=== PATIENT | female | born 1930 | race Caucasian/White ===

== ENCOUNTER 2016-05-01 09:22 | Observation (INO) | payer MEDICARE ==
[2016-05-01] MEDS ORDERED: LORazepam 2 MG/ML SYRINGE IV STA (09:37)
[2016-05-01] MEDS ORDERED: NITROGLYCERIN OINT 1 INCH/GM PACKET TOPICAL STA (09:37)
[2016-05-01] MEDS ORDERED: ASPIRIN 81 MG CHEW PO STA (09:37)
--- NOTE | 2016-05-01 09:39 | ED ---
General Adult HPI - General Chief complaint: Chest Pain Stated complaint: Chest Pain (Heart hx) Time Seen by Provider: 05/01/16 09:30 Source: patient, RN notes reviewed Mode of arrival: ambulatory Limitations: no limitations - History of Present Illness Initial comments: This is a 86-year-old female who presents emergency department with past medical history significant for hypertension and heart attack with a stent placement approximately 3 years ago. Patient states this morning she woke up at 6:30 she had left-sided chest pressure with a little burning sensation. Patient states she also had pain in her arm and a sensation of fullness in her throat. Patient states she wasn't nauseated did not vomit. Patient denies any episodes of diaphoresis. Patient stated that she had no difficulty breathing or shortness of breath. Patient denies any recent fever chills or cough. Patient states after a while she took a nitro and eventually the pain subsided. Patient states her nitro were up-to-date. Patient denies any abdominal pain. Patient denies any recent diarrhea. Patient denies headache patient denies any numbness or focal weakness. Patient denies any lightheadedness dizziness or near syncopal episode. - Related Data Home Medications Medication Instructions Recorded Confirmed Magnesium Oxide [Mag-Ox] 500 mg PO DAILY 05/14/14 05/01/16 Multivitamins, Thera [Multivitamin] 1 tab PO DAILY 05/14/14 05/01/16 Aspirin 81 mg PO HS 11/08/14 05/01/16 Calcium Carbonate [Calcium] 600 mg PO DAILY 11/08/14 05/01/16 Lisinopril [Zestril] 5 mg PO DAILY 11/08/14 05/01/16 Aspirin 325 mg PO ONCE 05/01/16 05/01/16 Atorvastatin [Lipitor] 20 mg PO HS 05/01/16 05/01/16 Cholecalciferol [Vitamin D3] 1,000 unit PO DAILY 05/01/16 05/01/16 Previous Rx's Medication Instructions Recorded Nitroglycerin Sl Tabs [Nitrostat] 0.4 mg SUBLINGUAL Q5M PRN #25 tab 05/16/14 Allergies Allergy/AdvReac Type Severity Reaction Status Date / Time nickel Allergy Rash/Hives Verified 05/01/16 09:52 Review of Systems ROS Statement: Those systems with pertinent positive or pertinent negative responses have been documented in the HPI. ROS Other: All systems not noted in ROS Statement are negative. Past Medical History Past Medical History: Chest Pain / Angina, Hyperlipidemia, Hypertension, Syncope Additional Past Medical History / Comment(s): 12/31/14 Pt presented to [facility] ER with chest discomfort-onset yesterday and worse today. It is a burning across chest. Pt had mild associated nausea and dyspnea. 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 History of Any Multi-Drug Resistant Organisms: None Reported Past Surgical History: Appendectomy, Heart Catheterization With Stent, Hysterectomy, Joint Replacement, Tonsillectomy Additional Past Surgical History / Comment(s): L total knee, bilateral cataract removal with lens implants, colonoscopy with polypectomies which were benign. 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 Her June 2013. Pt is independent. She drives a car. Pt does not use any assisstive devices. She usually walks 2 miles frequently for exercise. Date of Last Stent Placement:: Past Psychological History: No Psychological Hx Reported Smoking Status: Never smoker Past Alcohol Use History: None Reported Past Drug Use History: None Reported - Past Family History Father Family Medical History: No Reported History Additional Family Medical History / Comment(s): Father of complications from a MVA Mother Family Medical History: Congestive Heart Failure (CHF), Coronary Artery Disease (CAD) Additional Family Medical History / Comment(s): Mother had rheumaic fever. General Exam - General Exam Comments Initial Comments: GENERAL: Patient is well-developed and well-nourished. Patient is nontoxic and well- hydrated and is in mild distress. ENT: Neck is soft and supple. No significant lymphadenopathy is noted. Oropharynx is clear. Moist mucous membranes. Neck has full range of motion without eliciting any pain. EYES: The sclera were anicteric and conjunctiva were pink and moist. Extraocular movements were intact and pupils were equal round and reactive to light. Eyelids were unremarkable. PULMONARY: Unlabored respirations. Good breath sounds bilaterally. No audible rales rhonchi or wheezing was noted. CARDIOVASCULAR: There is a regular rate and rhythm without any murmurs gallops or rubs. ABDOMEN: Soft and nontender with normal bowel sounds. No palpable organomegaly was noted. There is no palpable pulsatile mass. SKIN: Skin is clear with no lesions or rashes and otherwise unremarkable. NEUROLOGIC: Patient is alert and oriented x3. Cranial nerves II through XII are grossly intact. Motor and sensory are also intact. Normal speech, volume and content. Symmetrical smile. MUSCULOSKELETAL: Normal extremities with adequate strength and full range of motion. No lower extremity swelling or edema. No calf tenderness. LYMPHATICS: No significant lymphadenopathy is noted PSYCHIATRIC: Normal psychiatric evaluation. Normal interpersonal interactions appears functionally intact in deals appropriately with others. No signs of depression. No signs of anxiety. Limitations: no limitations Course Vital Signs 05/01/16 05/01/16 05/01/16 09:33 09:34 09:37 Temperature 97.9 F 97.8 F Pulse Rate 85 94 Pulse Rate [ 92 Bilateral Radial] Respiratory 18 14 Rate Blood Pressure 171/79 158/91 O2 Sat by Pulse 97 99 Oximetry 05/01/16 10:36 Temperature Pulse Rate 76 Pulse Rate [ Bilateral Radial] Respiratory 14 Rate Blood Pressure 111/73 O2 Sat by Pulse 95 Oximetry Medical Decision Making - Medical Decision Making EKG shows sinus rhythm with frequent PVCs at 89 bpm WI interval is on a 54 QRS is 84 QT interval 362 QTC is 440. Patient's EKG shows no ST segment elevation or depression or T wave abnormalities are noted. Chest x-ray shows no acute abnormality. I went back into the room to reevaluate the patient she remained pain-free at this time. After all labs were back I went back into the room to reevaluate the patient she again remained pain-free. But because of her history her clinical picture today I was concerned about her having had unstable angina so I started heparin. [facility] I wrote admitting orders and consult cardiology continued heparin nitroglycerin and aspirin on the floor. - Lab Data Result diagrams: 05/01/16 09:46 05/01/16 09:46 Lab Results 05/01/16 05/01/16 05/01/16 Range/Units 09:46 09:46 09:46 WBC 8.2 (3.8-10.6) k/uL RBC 5.28 (3.80-5.40) m/uL Hgb 15.9 (11.4-16.0) gm/dL Hct 48.0 H (34.0-46.0) % MCV 90.8 (80.0-100.0) fL MCH 30.1 (25.0-35.0) pg MCHC 33.1 (31.0-37.0) g/dL RDW 13.7 (11.5-15.5) % Plt Count 427 (150-450) k/uL Neutrophils % 68 % Lymphocytes % 22 % Monocytes % 5 % Eosinophils % 2 % Basophils % 1 % Neutrophils # 5.5 (1.3-7.7) k/uL Lymphocytes # 1.8 (1.0-4.8) k/uL Monocytes # 0.4 (0-1.0) k/uL Eosinophils # 0.2 (0-0.7) k/uL Basophils # 0.1 (0-0.2) k/uL PT (9.0-12.0) sec INR (<1.1) APTT (22.0-30.0) sec Sodium 144 (137-145) mmol/L Potassium 4.6 (3.5-5.1) mmol/L Chloride 108 H (98-107) mmol/L Carbon Dioxide 26 (22-30) mmol/L Anion Gap 10 mmol/L BUN 12 (7-17) mg/dL Creatinine 0.74 (0.52-1.04) mg/dL Est GFR (MDRD) Af Amer >60 (>60 ml/min/1.73 sqM) Est GFR (MDRD) Non-Af >60 (>60 ml/min/1.73 sqM) Glucose 109 H (74-99) mg/dL Calcium 9.5 (8.4-10.2) mg/dL Magnesium 2.1 (1.6-2.3) mg/dL Total Bilirubin 0.8 (0.2-1.3) mg/dL AST 29 (14-36) U/L ALT 29 (9-52) U/L Alkaline Phosphatase 81 (38-126) U/L Total Creatine Kinase 44 (30-135) U/L CK-MB (CK-2) 0.5 (0.0-2.4) ng/mL CK-MB (CK-2) Rel Index 1.1 Troponin I <0.012 (0.000-0.034) ng/mL Total Protein 7.1 (6.3-8.2) g/dL Albumin 4.1 (3.5-5.0) g/dL 05/01/16 Range/Units 09:46 WBC (3.8-10.6) k/uL RBC (3.80-5.40) m/uL Hgb (11.4-16.0) gm/dL Hct (34.0-46.0) % MCV (80.0-100.0) fL MCH (25.0-35.0) pg MCHC (31.0-37.0) g/dL RDW (11.5-15.5) % Plt Count (150-450) k/uL Neutrophils % % Lymphocytes % % Monocytes % % Eosinophils % % Basophils % % Neutrophils # (1.3-7.7) k/uL Lymphocytes # (1.0-4.8) k/uL Monocytes # (0-1.0) k/uL Eosinophils # (0-0.7) k/uL Basophils # (0-0.2) k/uL PT 11.4 (9.0-12.0) sec INR 1.1 (<1.1) APTT 21.2 L (22.0-30.0) sec Sodium (137-145) mmol/L Potassium (3.5-5.1) mmol/L Chloride (98-107) mmol/L Carbon Dioxide (22-30) mmol/L Anion Gap mmol/L BUN (7-17) mg/dL Creatinine (0.52-1.04) mg/dL Est GFR (MDRD) Af Amer (>60 ml/min/1.73 sqM) Est GFR (MDRD) Non-Af (>60 ml/min/1.73 sqM) Glucose (74-99) mg/dL Calcium (8.4-10.2) mg/dL Magnesium (1.6-2.3) mg/dL Total Bilirubin (0.2-1.3) mg/dL AST (14-36) U/L ALT (9-52) U/L Alkaline Phosphatase (38-126) U/L Total Creatine Kinase (30-135) U/L CK-MB (CK-2) (0.0-2.4) ng/mL CK-MB (CK-2) Rel Index Troponin I (0.000-0.034) ng/mL Total Protein (6.3-8.2) g/dL Albumin (3.5-5.0) g/dL Critical Care Time Critical Care Time: Yes Total Critical Care Time: 35 Disposition Clinical Impression: Unstable angina Disposition: ADMITTED IP TO THIS [facility] Time of Disposition: 10:49
[2016-05-01 09:57] LABS: Basophils # (A) 0.1 k/uL (0-0.2); Basophils % (A) 1 %; CH 29.9; CHCM 33.1; Eosinophils # (A) 0.2 k/uL (0-0.7); Eosinophils % (A) 2 %; HDW 2.31; HGB 15.9 gm/dL (11.4-16.0); Luc # (Auto) 0.18; Luc % (Auto) 2; Lymphocytes # (A) 1.8 k/uL (1.0-4.8); Lymphocytes % (A) 22 %; MCH 30.1 pg (25.0-35.0); MCHC 33.1 g/dL (31.0-37.0); MCV 90.8 fL (80.0-100.0); Mean Platelet Volume 8.4; Monocytes # (A) 0.4 k/uL (0-1.0); Monocytes % (A) 5 %; Neutrophils # (A) 5.5 k/uL (1.3-7.7); Neutrophils % (A) 68 %; RBC 5.28 m/uL (3.80-5.40); RDW 13.7 % (11.5-15.5); WBC 8.2 k/uL (3.8-10.6); WBC (Perox) 8.34
--- NOTE | 2016-05-01 10:09 | XR ---
EXAMINATION TYPE: XR chest 2V DATE OF EXAM: 05/01/2016 10:04 AM COMPARISON: Chest x-ray December 31, 2014. HISTORY: Chest pain today. TECHNIQUE: Frontal and lateral views of the chest are obtained. FINDINGS: There is chronic parenchymal change without suspicious focal air space opacity, pleural ef fusion, or pneumothorax seen. The cardiac silhouette size remains within normal limits with atherosc lerotic thoracic aorta redemonstrated. The osseous structures remain demineralized. IMPRESSION: Chronic changes without acute pulmonary process. No significant change from prior.
[2016-05-01 10:12] LABS: ALT 29 U/L (9-52); AST 29 U/L (14-36); Alkaline Phosphatase 81 U/L (38-126); Anion Gap 10 mmol/L; Blood Urea Nitrogen 12 mg/dL (7-17); Calcium 9.5 mg/dL (8.4-10.2); Carbon Dioxide 26 mmol/L (22-30); Chloride 108 mmol/L (98-107); Glucose 109 mg/dL (74-99); Magnesium 2.1 mg/dL (1.6-2.3); Non-African American GFR(MDRD) >60 (>60 ml/min/1.73 sqM); Potassium 4.6 mmol/L (3.5-5.1); Sodium 144 mmol/L (137-145); Total Bilirubin 0.8 mg/dL (0.2-1.3); Total Protein 7.1 g/dL (6.3-8.2)
[2016-05-01 10:17] LABS: INR 1.1 (<1.1); Prothrombin Time 11.4 sec (9.0-12.0)
[2016-05-01 10:19] LABS: Partial Thromboplastin Time 21.2 sec (22.0-30.0)
[2016-05-01 10:30] LABS: Creatine Kinase 44 U/L (30-135)
[2016-05-01 10:44] LABS: Creatine Kinase MB 0.5 ng/mL (0.0-2.4); Troponin I <0.012 ng/mL (0.000-0.034)
[2016-05-01] MEDS ORDERED: HEPARIN SODIUM,PORCINE 5,000 UNIT/ML 1 ML VIAL IV ONE (10:47)
[2016-05-01] MEDS ORDERED: NITROGLYCERIN SL TABS 0.4 MG TAB SUBLINGUAL PRN ×2 (10:50→15:29)
[2016-05-01] MEDS ORDERED: HEPARIN SODIUM,PORCINE/D5W PMX 25,000 UNIT in DEXTROSE/WATER 1 500ML.BAG IV SCH (11:00)
[2016-05-01 12:33] VITALS: RESP 16
[2016-05-01] MEDS: PANTOPRAZOLE 40 MG/10 ML VIAL IVP SCH (16:24)
[2016-05-01] MEDS: NITROGLYCERIN OINT 1 INCH/GM PACKET TOPICAL SCH ×3 (16:25→22:46)
[2016-05-01 18:06] LABS: Creatine Kinase 36 U/L (30-135)
[2016-05-01 18:16] LABS: Creatine Kinase MB 0.2 ng/mL (0.0-2.4); Troponin I <0.012 ng/mL (0.000-0.034)
[2016-05-01] MEDS ORDERED: ASPIRIN 81 MG CHEW PO SCH (21:00)
[2016-05-01] MEDS ORDERED: ATORVASTATIN 20 MG TAB PO SCH (21:00)
--- NOTE | 2016-05-01 22:07 | HP ---
DATE OF ADMISSION: Patient is an 86-year-old female with known history of coronary artery disease and stents in the past. She came in with complaints of chest pressure-like sensation which started today morning, non-exertional. Patient had a stress test in 2014 which was negative. Patient's chest pain lasted for about 30 minutes. Denied any shortness of breath, lightheadedness or diaphoresis associated with that. Patient's chest pain is non-pleuritic in nature, not associated with food, but it is like a burning sensation. She did complain of radiation to the left arm. Patient's symptoms improved with 2 aspirin and 2 nitroglycerin, she says; about 7/10 in severity on onset; now pretty minimal at this time. Patient denied any fever or chills. Patient denied any cough, runny nose. REVIEW OF SYSTEMS: CONSTITUTIONAL: No fever, no malaise, no fatigue. HEENT: No recent visual problems or hearing problems. Denied any sore throat. CARDIOVASCULAR: As described in HPI. PULMONARY: No shortness of breath, no cough, no hemoptysis. GASTROINTESTINAL: No diarrhea, no nausea, no vomiting, no abdominal pain. Normoactive bowel sounds. NEUROLOGICAL: No headaches, no weakness, no numbness. HEMATOLOGICAL: Denies any bleeding or petechiae. GENITOURINARY: Denies any burning micturition, frequency, or urgency. MUSCULOSKELETAL/RHEUMATOLOGICAL: Denies any joint pain, swelling, or any muscle pain. ENDOCRINE: Denies any polyuria or polydipsia. The rest of the 14 point review of systems is negative. Home medications include: 1. Magnesium. 2. Multivitamin. 3. Aspirin. 4. Calcium carbonate. 5. Lisinopril. 6. Aspirin. 7. Atorvastatin. 8. Cholecalciferol. Past medical history is significant for: 1. Coronary artery disease. 2. Hyperlipidemia. 3. Hypertension. 4. Syncopal episode in the past. 5. Patient had a cardiac catheterization with stent placement in the past. 6. Appendectomy. 7. Hysterectomy. 8. Joint replacement surgery. 9. Tonsillectomy. SOCIAL HISTORY: Patient denied any smoking, alcohol abuse or any drug abuse. FAMILY HISTORY: Father of complications of motor vehicle accident. Mother had congestive heart failure, coronary artery disease. Mother had rheumatic fever as well. PHYSICAL EXAMINATION: VITAL SIGNS: Temperature 98.2, pulse of 92, respiratory rate of 16, blood pressure 113/63. Saturating at 93% on room air. GENERAL: The patient is alert and oriented x3, not in any acute distress. Well developed, well nourished. HEENT: Pupils are round and equally reacting to light. EOMI. No scleral icterus. No conjunctival pallor. Normocephalic, atraumatic. No pharyngeal erythema. No thyromegaly. CARDIOVASCULAR: S1 and S2 present. No murmurs, rubs, or gallops. PULMONARY: Chest is clear to auscultation, no wheezing or crackles. ABDOMEN: Soft, nontender, nondistended, normoactive bowel sounds. No palpable organomegaly. MUSCULOSKELETAL: No joint swelling or deformity. EXTREMITIES: No cyanosis, clubbing, or pedal edema. NEUROLOGICAL: Gross neurological examination did not reveal any focal deficits. SKIN: No rashes. LABORATORY DATA: CBC, CMP are essentially within normal limits. Troponins are negative. EKG showed some PVCs without any acute ST-T wave changes. Chest x-ray did not show any acute abnormality. One set of troponin so far negative. ASSESSMENT AND PLAN: 1. Chest pain. Patient will be admitted to rule out acute coronary artery syndrome. Patient does have history of coronary artery disease in the past and stent in the past. Rule out acute coronary artery syndrome. Patient will be continued on heparin. Cardiology evaluation ( ) at least 2 more sets of troponins. Ruling out unstable angina and NSTEMI at this time. 2. Coronary artery disease. 3. Hypertension. 4. Hyperlipidemia. For her chronic medical problems, I will go ahead and continue her home medications. Apparently patient's blood pressures have been coming down lately. Patient usually uses only 5 mg of amlodipine, 5 mg of lisinopril, which I am holding at this point of time because of low normal blood pressure. The rest of her home medications will be continued as it is. Patient will need to be n.p.o. Probability of stress test tomorrow. Cardiology will evaluate the patient.
[2016-05-01 22:08] LABS: Creatine Kinase 33 U/L (30-135)
[2016-05-01 22:21] LABS: Creatine Kinase MB <0.2 ng/mL (0.0-2.4); Troponin I <0.012 ng/mL (0.000-0.034)
[2016-05-02] MEDS: NITROGLYCERIN OINT 1 INCH/GM PACKET TOPICAL SCH ×2 (05:00→14:02)
[2016-05-02 07:05] LABS: Cholesterol 112 mg/dL (<200); HDL Cholesterol 53 mg/dL (40-60); Triglycerides 81 mg/dL (<150)
[2016-05-02] MEDS ORDERED: LISINOPRIL 5 MG TAB PO SCH ×2 (09:00→10:45)
[2016-05-02] MEDS ORDERED: ASPIRIN 325 MG TAB PO SCH (09:00)
[2016-05-02] MEDS ORDERED: CHOLECALCIFEROL 1,000 UNIT TAB PO SCH (09:00)
[2016-05-02] MEDS: PANTOPRAZOLE 40 MG/10 ML VIAL IVP SCH (09:44)
[2016-05-02] MEDS ORDERED: AMINOPHYLLINE 500 MG/20 ML VIAL IV PRN (10:45)
[2016-05-02] MEDS ORDERED: REGADENOSON 0.4 MG/5 ML SYRINGE IV ONE (10:45)
--- NOTE | 2016-05-02 11:31 | CONS ---
DATE OF CONSULTATION: Mrs. Trevino is an 86-year-old female who is seen for the cardiac evaluation. This patient's past history is reviewed. She is a thinly-built female. She woke up yesterday morning around 6:30 with the pressure in the chest, it was kind of burning sensation and there was some pain in the arm. Patient also felt some fullness in the throat. Patient did not have any nausea, vomiting or sweating. Patient took some nitroglycerin with partial relief. As the pain persisted, she came to the emergency room and subsequently is admitted. Patient's EKGs and cardiac enzymes are normal. This patient has a known history of coronary artery disease with a prior history of a stent to the obtuse marginal branch in 2014. Since then, the patient was admitted a couple of times in the hospital with chest pain and stress test was negative. Patient since then, has been doing fairly well without any exertional angina. Patient is moderately active physically. She has a history of hypertension, hyperlipidemia. There is no history of congestive cardiac failure. Past medical history includes a history of appendectomy, hysterectomy, joint replacement and tonsillectomy. Patient's home medications include aspirin, Lipitor, vitamin D3 and Zestril. Review of systems is otherwise unremarkable. SMOKING HISTORY: There is no previous history of smoking. Physical examination at present reveals an 86-year-old female who is thinly-built, does not appear to be in any acute distress. In the emergency room, patient's vital signs were stable. Initial blood pressure was 171/79 mmHg. HEENT examination is negative. Neck is supple. There is no increase in jugular venous pressure. Both the carotid pulses are felt. There is no bruit. Chest is symmetrical. HEART: The PMI is not felt. First and second heart sounds are normal. There is no evidence of any murmur. Lungs are clinically clear to auscultation and percussion. Abdomen is soft. Liver and spleen are not enlarged. Bowel sounds are heard. EXTREMITIES: Peripheral pulsations are 2+. EKG shows normal sinus rhythm without any acute ischemic changes. Patient's cardiac enzymes are normal. FINAL IMPRESSION: This patient had a kind of prolonged episode of chest pain, unstable angina cannot be entirely excluded. Patient's EKGs and cardiac enzymes are normal. Patient has a prior history of stent to the obtuse marginal branch. I discussed the various treatment options with the patient including repeat cardiac catheterization versus stress test. Patient would like to follow with a stress test. We will do the Lexiscan Cardiolite study. If the stress test is normal, patient can be discharged home on the medical treatment.
--- NOTE | 2016-05-02 12:45 | EST ---
DATE OF SERVICE: 05/02/2016 AGE: 86Y SEX: F HT: 61" WT: 112 lbs. Protocol Derek: Other: Lexiscan Cardiolite Stage: Dur. of Exercise: *Heart Rate Blood Pressure *Rest: 77 Rest: 145/ ( ). * *Max. Achieved: 114 Maximum BP: 124/70 85% PMHR: 100% PMHR: *METS: INDICATIONS: Chest pain. MEDICATIONS: Multivitamin, Mag-ox, Nitrostat, Zestril, aspirin 81 mg, calcium, aspirin 325 mg, Lipitor, vitamin D3. Baseline EKG shows sinus rhythm, normal axis, normal intervals. Patient was given intravenous Lexiscan as per protocol. Did not have chest pain or diagnostic ST segment depression. CONCLUSION: 1. Negative stress test by EKG criteria. 2. Cardiolite portion of the stress test will be reported separately.
--- NOTE | 2016-05-02 13:38 | NM ---
EXAMINATION TYPE: NM stress lexiscan cardiolite DATE OF EXAM: 05/02/2016 1:32 PM COMPARISON: 11/09/2014 HISTORY: Chest pain TECHNIQUE: After the intravenous administration of 10.04 mCi Tc 99m Sestamibi - Cardiolite resting S PECT images acquired 45 minutes post injection. The patient received 0.4mg Lexiscan, 27.5 mCi Tc 99m Sestamibi - Stress images obtained [address] injection FINDINGS: Review of stress and rest SPECT images demonstrates no distinct perfusion abnormality. Gated analysi s shows normal wall motion with an estimated left ventricular ejection fraction of 79 %. Some distal lateral and septal wall perfusion defect may be present. This appears fixed on both rest and stress images. Prior infarct could be considered. This is an interval change from the prior nitish rison. 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 This is an interval change from 2014. Interval infarct could be considered c orrelate with EKG changes.
[2016-05-02 15:27] VITALS: BP 170/86; PULSE 76; TEMP 98
--- NOTE | 2016-05-03 07:45 | ECHOF ---
Referral Reason:chest pain MEASUREMENTS -------- HEIGHT: 154.9 cm WEIGHT: 50.8 kg BP: IVSd: 1.1 cm (0.6 - 1.1) LVIDd: 3.5 cm (3.9 - 5.3) LVPWd: 1.0 cm (0.6 - 1.1) IVSs: 1.1 cm LVIDs: 2.7 cm LVPWs: 0.8 cm LAESV Index (A-L): 31.19 ml/m Ao Diam: 2.9 cm (2.0 - 3.7) AV Cusp: 1.6 cm (1.5 - 2.6) LA Diam: 3.6 cm (2.7 - 3.8) MV EXCURSION: 14.577 mm (> 18.000) MV EF SLOPE: 75 mm/s (70 - 150) EPSS: 0.7 cm MV E Pilo: 0.86 m/s MV DecT: 248 ms MV A Pilo: 1.11 m/s MV E/A Ratio: 0.77 RAP: 5.00 mmHg RVSP: 27.90 mmHg FINDINGS -------- Sinus rhythm. This was a technically adequate study. There is mild concentric left ventricular hypertrophy. Overall left ventricular systolic function is low-normal with, an EF between 50 - 55 %. The right ventricle is normal in size. LA is midly dilated 29-33ml/m2. The right atrial size is normal. There is mild aortic valve sclerosis. There is no evidence of aortic regurgitation. Mild mitral annular calcification present. Mild mitral regurgitation is present. Mild tricuspid regurgitation present. Right ventricular systolic pressure is normal at < 35 mmHg. There is no evidence of pulmonary hypertension. There is no pulmonic regurgitation present. The aortic root size is normal. There is no pericardial effusion. CONCLUSIONS -------- 1. There is mild concentric left ventricular hypertrophy. 2. There is no pulmonic regurgitation present. 3. Overall left ventricular systolic function is low-normal with, an EF between 50 - 55 %. 4. LA is midly dilated 29-33ml/m2. 5. There is mild aortic valve sclerosis. 6. Mild mitral annular calcification present. 7. Mild mitral regurgitation is present. 8. Mild tricuspid regurgitation present. 9. Right ventricular systolic pressure is normal at < 35 mmHg. 10. There is no evidence of pulmonary hypertension. OFFICE SERVICES ASSISTANT: Sara Pedersen RDCS
--- NOTE | 2016-05-03 08:38 | DS ---
DATE OF ADMISSION: 05/01/2016 DATE OF DISCHARGE: 05/02/2016 An 86-year-old admitted with chest pain. Patient's stress test is negative and patient is being discharged today. Patient was seen and examined on the day of discharge. Please refer to my dictation from yesterday for further details of her medical problems and patient will follow up with Dr. Glenna Reid in 3 to 7 days. Activity as tolerated. Cardiac diet. Please refer to my depart summary for further details of discharge medications.
== END 2016-05-02 16:05 | disposition home or self-care (01) ==
LOC: EC 09:22 → 3OBS 10:50 → 3SUR 21:00 → 3OBS 05-02 07:40
PROVIDERS: ADMIT Hospitalist; ATTEND Hospitalist
DX: R07.89 Other chest pain (principal); I10 Essential (primary) hypertension; E78.5 Hyperlipidemia, unspecified; M79.603 Pain in arm, unspecified; I25.2 Old myocardial infarction; I25.10 Atherosclerotic heart disease of native coronary artery without angina pectoris; Z95.5 Presence of coronary angioplasty implant and graft; Z79.82 Long term (current) use of aspirin; Z79.899 Other long term (current) drug therapy; Z91.048 Other nonmedicinal substance allergy status; Z82.49 Family history of ischemic heart disease and other diseases of the circulatory system; M19.042 Primary osteoarthritis, left hand; M19.041 Primary osteoarthritis, right hand; M19.90 Unspecified osteoarthritis, unspecified site
CPT/HCPCS: 36415; 93005; 93017; 93306; 80061; 80053; 82550; 82553; 83735; 84484; 85025; 85610; 85730 ×2; 71020; 78452; 99291; 96365; 96376; 96375; G0378 ×2; A9500; J2060; J1644 ×2; J2785; 96366

== ENCOUNTER 2017-04-14 09:28 | Inpatient (IN) | payer MEDICARE ==
--- NOTE | 2017-04-14 09:53 | ED ---
General Adult HPI - General Chief complaint: Chest Pain Stated complaint: CHEST PAIN Time Seen by Provider: 04/14/17 09:35 Source: patient, family Mode of arrival: wheelchair Limitations: no limitations - History of Present Illness Initial comments: This is an 87-year-old female the ER with chest pain. Patient is significant history of heart disease with history of prior NH I blood pressure high cholesterol. Patient also has history of angina and chest pain. Patient has chest pain today started this morning left-sided with radiation to jaw. Patient also has radiation to arm. No current shortness of breath no diaphoresis. No modifying factors. No recent history of cough or congestion, no fevers, recent travel history - Related Data Home Medications Medication Instructions Recorded Confirmed Magnesium Oxide [Mag-Ox] 500 mg PO DAILY 05/14/14 04/14/17 Multivitamins, Thera [Multivitamin 1 tab PO DAILY 05/14/14 04/14/17 (formulary)] Aspirin 81 mg PO HS 11/08/14 04/14/17 Lisinopril [Zestril] 5 mg PO DAILY 11/08/14 04/14/17 Atorvastatin [Lipitor] 20 mg PO HS 05/01/16 04/14/17 Cholecalciferol [Vitamin D3] 1,000 unit PO DAILY 05/01/16 04/14/17 Calcium Carbonate/Vitamin D3 1 tab PO DAILY 04/14/17 04/14/17 [Calcium 600-Vit D3 400 Caplet] Clobetasol Propionate [Temovate 1 applic TOPICAL HS 04/14/17 04/14/17 0.05% Oint] Estrogens, Conjugated Cream 1 applicator VAGINAL MO 04/14/17 04/14/17 [Premarin Cream] Allergies Allergy/AdvReac Type Severity Reaction Status Date / Time nickel Allergy Rash/Hives Verified 04/14/17 10:37 Review of Systems ROS Statement: Those systems with pertinent positive or pertinent negative responses have been documented in the HPI. ROS Other: All systems not noted in ROS Statement are negative. 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 Last Myocardial Infarction Date:: 2014 History of Any Multi-Drug Resistant Organisms: None Reported Past Surgical History: Appendectomy, Heart Catheterization With Stent, Hysterectomy, Joint Replacement, Tonsillectomy Additional Past Surgical History / Comment(s): L total knee, bilateral cataract removal with lens implants, colonoscopy with polypectomies which were benign. 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 Past Anesthesia/Blood Transfusion Reactions: Postoperative Nausea & Vomiting ( PONV) Additional Past Anesthesia/Blood Transfusion Reaction / Comment(s): PONV with her hysterectomy. Date of Last Stent Placement:: 05/15/2014 Past Psychological History: No Psychological Hx Reported Smoking Status: Never smoker Past Alcohol Use History: None Reported Past Drug Use History: None Reported - Past Family History Father Family Medical History: No Reported History Additional Family Medical History / Comment(s): Father of complications from a MVA Mother Family Medical History: Congestive Heart Failure (CHF), Coronary Artery Disease (CAD) Additional Family Medical History / Comment(s): Mother had rheumaic fever. General Exam Limitations: no limitations General appearance: alert, in no apparent distress Head exam: Present: atraumatic, normocephalic, normal inspection Eye exam: Present: normal appearance, PERRL, EOMI. Absent: scleral icterus, conjunctival injection, periorbital swelling ENT exam: Present: normal exam, mucous membranes moist Neck exam: Present: normal inspection. Absent: tenderness, meningismus, lymphadenopathy Respiratory exam: Present: normal lung sounds bilaterally. Absent: respiratory distress, wheezes, rales, rhonchi, stridor Cardiovascular Exam: Present: regular rate, normal rhythm, normal heart sounds. Absent: systolic murmur, diastolic murmur, rubs, gallop, clicks GI/Abdominal exam: Present: soft, normal bowel sounds. Absent: distended, tenderness, guarding, rebound, rigid Extremities exam: Present: normal inspection, full ROM, normal capillary refill. Absent: tenderness, pedal edema, joint swelling, calf tenderness Back exam: Present: normal inspection Neurological exam: Present: alert, oriented X3, CN II-XII intact Psychiatric exam: Present: normal affect, normal mood Skin exam: Present: warm, dry, intact, normal color. Absent: rash Course Vital Signs 04/14/17 04/14/17 04/14/17 09:33 10:02 10:39 Temperature 97.3 F L Pulse Rate 81 72 Respiratory 18 18 18 Rate Blood Pressure 189/83 161/75 O2 Sat by Pulse 93 L 96 Oximetry 04/14/17 12:48 Temperature Pulse Rate 74 Respiratory 18 Rate Blood Pressure 154/74 O2 Sat by Pulse 96 Oximetry - Reevaluation(s) Reevaluation #1: 04/14/17 12:59 Patient still with chest pain EKG Findings - EKG Comments: EKG Findings:: EKG shows sinus rhythm rate of 79, RI 134, QRS 86, QTc 442 Medical Decision Making - Medical Decision Making 87 female the ER for evaluation. Presented for chest pain history of heart disease. A she has negative EKG negative troponin will be admitted for cardiac observation - Lab Data Result diagrams: 04/14/17 09:50 04/14/17 09:50 Lab Results 04/14/17 04/14/17 04/14/17 Range/Units 09:50 09:50 09:50 WBC 8.9 (3.8-10.6) k/uL RBC 5.12 (3.80-5.40) m/uL Hgb 14.7 (11.4-16.0) gm/dL Hct 48.0 H (34.0-46.0) % MCV 93.7 (80.0-100.0) fL MCH 28.7 (25.0-35.0) pg MCHC 30.7 L (31.0-37.0) g/dL RDW 13.4 (11.5-15.5) % Plt Count 491 H (150-450) k/uL Neutrophils % 69 % Lymphocytes % 20 % Monocytes % 7 % Eosinophils % 3 % Basophils % 1 % Neutrophils # 6.2 (1.3-7.7) k/uL Lymphocytes # 1.8 (1.0-4.8) k/uL Monocytes # 0.6 (0-1.0) k/uL Eosinophils # 0.2 (0-0.7) k/uL Basophils # 0.0 (0-0.2) k/uL PT (9.0-12.0) sec INR (<1.2) APTT (22.0-30.0) sec Sodium 146 H (137-145) mmol/L Potassium 4.6 (3.5-5.1) mmol/L Chloride 109 H (98-107) mmol/L Carbon Dioxide 27 (22-30) mmol/L Anion Gap 10 mmol/L BUN 16 (7-17) mg/dL Creatinine 0.66 (0.52-1.04) mg/dL Est GFR (MDRD) Af Amer >60 (>60 ml/min/1.73 sqM) Est GFR (MDRD) Non-Af >60 (>60 ml/min/1.73 sqM) Glucose 100 H (74-99) mg/dL Calcium 9.8 (8.4-10.2) mg/dL Magnesium 2.1 (1.6-2.3) mg/dL Total Bilirubin 0.6 (0.2-1.3) mg/dL AST 31 (14-36) U/L ALT 29 (9-52) U/L Alkaline Phosphatase 71 (38-126) U/L Total Creatine Kinase 39 (30-135) U/L CK-MB (CK-2) 0.4 (0.0-2.4) ng/mL CK-MB (CK-2) Rel Index 1.0 Troponin I <0.012 (0.000-0.034) ng/mL Total Protein 6.6 (6.3-8.2) g/dL Albumin 3.9 (3.5-5.0) g/dL 04/14/17 Range/Units 09:50 WBC (3.8-10.6) k/uL RBC (3.80-5.40) m/uL Hgb (11.4-16.0) gm/dL Hct (34.0-46.0) % MCV (80.0-100.0) fL MCH (25.0-35.0) pg MCHC (31.0-37.0) g/dL RDW (11.5-15.5) % Plt Count (150-450) k/uL Neutrophils % % Lymphocytes % % Monocytes % % Eosinophils % % Basophils % % Neutrophils # (1.3-7.7) k/uL Lymphocytes # (1.0-4.8) k/uL Monocytes # (0-1.0) k/uL Eosinophils # (0-0.7) k/uL Basophils # (0-0.2) k/uL PT 10.4 (9.0-12.0) sec INR 1.1 (<1.2) APTT 23.8 (22.0-30.0) sec Sodium (137-145) mmol/L Potassium (3.5-5.1) mmol/L Chloride (98-107) mmol/L Carbon Dioxide (22-30) mmol/L Anion Gap mmol/L BUN (7-17) mg/dL Creatinine (0.52-1.04) mg/dL Est GFR (MDRD) Af Amer (>60 ml/min/1.73 sqM) Est GFR (MDRD) Non-Af (>60 ml/min/1.73 sqM) Glucose (74-99) mg/dL Calcium (8.4-10.2) mg/dL Magnesium (1.6-2.3) mg/dL Total Bilirubin (0.2-1.3) mg/dL AST (14-36) U/L ALT (9-52) U/L Alkaline Phosphatase (38-126) U/L Total Creatine Kinase (30-135) U/L CK-MB (CK-2) (0.0-2.4) ng/mL CK-MB (CK-2) Rel Index Troponin I (0.000-0.034) ng/mL Total Protein (6.3-8.2) g/dL Albumin (3.5-5.0) g/dL - Radiology Data Radiology results: report reviewed (Chest x-rays negative for acute disease), image reviewed Critical Care Time Critical Care Time: Yes Total Critical Care Time: 31 Disposition Clinical Impression: Chest pain, Unstable angina Disposition: ADMITTED IP TO THIS [facility] Condition: Fair
[2017-04-14 10:07] LABS: Basophils % (A) 1 %; Eosinophils # (A) 0.2 k/uL (0-0.7); Eosinophils % (A) 3 %; HGB 14.7 gm/dL (11.4-16.0); Lymphocytes # (A) 1.8 k/uL (1.0-4.8); Lymphocytes % (A) 20 %; MCH 28.7 pg (25.0-35.0); MCHC 30.7 g/dL (31.0-37.0); MCV 93.7 fL (80.0-100.0); Mean Platelet Volume 7.7; Monocytes # (A) 0.6 k/uL (0-1.0); Monocytes % (A) 7 %; Neutrophils # (A) 6.2 k/uL (1.3-7.7); Neutrophils % (A) 69 %; Platelet Count 491 k/uL (150-450); RBC 5.12 m/uL (3.80-5.40); RDW 13.4 % (11.5-15.5); WBC 8.9 k/uL (3.8-10.6)
[2017-04-14 10:17] LABS: ALT 29 U/L (9-52); AST 31 U/L (14-36); Albumin 3.9 g/dL (3.5-5.0); Alkaline Phosphatase 71 U/L (38-126); Anion Gap 10 mmol/L; Blood Urea Nitrogen 16 mg/dL (7-17); Calcium 9.8 mg/dL (8.4-10.2); Carbon Dioxide 27 mmol/L (22-30); Chloride 109 mmol/L (98-107); Glucose 100 mg/dL (74-99); Magnesium 2.1 mg/dL (1.6-2.3); Potassium 4.6 mmol/L (3.5-5.1); Sodium 146 mmol/L (137-145); Total Bilirubin 0.6 mg/dL (0.2-1.3); Total Protein 6.6 g/dL (6.3-8.2)
[2017-04-14 10:25] LABS: Creatine Kinase 39 U/L (30-135)
[2017-04-14 10:38] LABS: Creatine Kinase MB 0.4 ng/mL (0.0-2.4); Troponin I <0.012 ng/mL (0.000-0.034)
[2017-04-14 11:03] LABS: INR 1.1 (<1.2); Partial Thromboplastin Time 23.8 sec (22.0-30.0); Prothrombin Time 10.4 sec (9.0-12.0)
--- NOTE | 2017-04-14 11:28 | XR ---
EXAMINATION TYPE: XR chest 2V DATE OF EXAM: 04/14/2017 HISTORY: Chest Pain. REFERENCE: Previous study dated 05/01/2016. FINDINGS: The lungs are clear. Pleural spaces are clear. The heart is mildly enlarged. There is ectas ia and unfolding of the thoracic aorta. IMPRESSION: MILD CARDIOMEGALY.
[2017-04-14] MEDS ORDERED: HEPARIN SODIUM,PORCINE 5,000 UNIT/ML 1 ML VIAL IV PRN (12:15)
[2017-04-14] MEDS ORDERED: HEPARIN SOD,PORK IN 0.45% NACL 25,000 UNIT in 0.45% NACL 1 500ML.BAG IV SCH (12:15)
[2017-04-14] MEDS ORDERED: NITROGLYCERIN SL TABS 0.4 MG TAB SUBLINGUAL PRN (12:15)
[2017-04-14] MEDS ORDERED: MORPHINE SULFATE 4 MG/ML SYRINGE IV PRN (12:15)
[2017-04-14] MEDS ORDERED: HEPARIN SODIUM,PORCINE 5,000 UNIT/ML 1 ML VIAL IV ONE (12:15)
[2017-04-14] MEDS ORDERED: MORPHINE ORAL SOLN 10 MG/5 ML CUP PO PRN (14:09)
[2017-04-14 16:17] LABS: Creatine Kinase 30 U/L (30-135)
[2017-04-14 16:28] LABS: Creatine Kinase MB 0.3 ng/mL (0.0-2.4); Troponin I <0.012 ng/mL (0.000-0.034)
[2017-04-14] MEDS ORDERED: ALPRAZolam 0.25 MG TAB PO PRN (19:37)
[2017-04-14] MEDS: METOPROLOL TARTRATE 25 MG TAB PO SCH (20:19)
[2017-04-14] MEDS: MELATONIN 3 MG TABLET PO SCH (20:23)
[2017-04-14] MEDS: CLOBETASOL PROP 0.05% OINT 15GM TOPICAL SCH (20:24)
--- NOTE | 2017-04-14 21:08 | HP ---
HISTORY AND PHYSICAL DATE OF SERVICE: 04/14/2017 CHIEF COMPLAINT: Chest pain. HISTORY OF PRESENT ILLNESS: This 87-year-old woman with a past medical history of multiple medical problems including hypertension, hyperlipidemia, history of myocardial infarction, history of DJD, history of appendectomy, CAD/stent being followed by Dr. Reid in the outpatient setting was complaining of chest pain. The pain started this morning and the patient had chest pain mostly in the central part and left side of the shoulder radiating to the left arm and radiating to the jaw also, the left upper arm and the jaw. The patient came to [facility] and was admitted for further evaluation and treatment. The initial troponins are negative and the initial EKG showed occasional PVCs and no other acute abnormalities and chest x-ray was also done which showed only mild cardiomegaly. There is no history of fever, rigors. PAST MEDICAL HISTORY: History of chest pain, hypertension, myocardial infarction, history of CAD/ stent. MEDICATIONS: Prior to admission include: 1. Multivitamins 1 daily. 2. Magnesium oxide 500 mg. 3. Zestril 5 mg daily. 4. 1 application. 5. Temovate 1 application q.h.s. 6. Vitamin D 3000 daily. 7. Calcium with vitamin D 1 p.o. daily. 8. Lipitor 20 mg q.h.s. 9. Aspirin 81 mg q.h.s. ALLERGIES: NICKEL. FAMILY HISTORY: Father from complications of motor vehicle accident. SOCIAL HISTORY: No history of smoking, no history of alcohol. REVIEW OF SYSTEMS: ENT: No diminished vision. No diminished hearing. Cardiovascular system: As mentioned earlier. Respirations: No cough or hemoptysis. GI: No nausea or vomiting. no dysuria or hematuria. Nervous system: No numbness, weakness. Allergy/Immunology : No asthma or hayfever. Musculoskeletal: As mentioned earlier. HEMATOLOGY/ONCOLOGY: No history of anemia. Endocrine: No history of diabetes, hypothyroidism. Constitutional: As mentioned earlier. Dermatology: Negative. Rheumatology: Negative. Constitutional: As mentioned earlier. PHYSICAL EXAM: General: Alert and oriented times three. Pulse 69, blood pressure 130/70, respirations 16, temperature 97.8. Pulse ox 94% on room air. HEENT: Conjunctivae normal. Oral mucosa moist. Neck is no jugular venous distention. No lymph node enlargement. No carotid bruit. Cardiovascular System: S1, S2 muffled. No S3. No S4. Respiratory: Breath sounds diminished in the bases. No rhonchi and no crackles. ABDOMEN: Soft, nontender. No mass palpable. Legs: No edema and no swelling. NERVOUS SYSTEM: Higher functions as mentioned earlier, moves all 4 limbs, no focal motor or sensory deficits. Lymphatics: No lymph nodes palpable in the neck, axillae or groin. Skin no ulcer, rash or bleeding. Joints: No active deforming arthropathy. LABS: WBC 8.2, hemoglobin 14.7, sodium 146, potassium 4.6. ASSESSMENT: 1. Chest pain possible unstable angina. 2. History of coronary artery disease stent. 3. Hypertension. 4. Hyperlipidemia. 5. History of myocardial infarction. 6. History of syncope. 7. History of degenerative joint disease. RECOMMENDATIONS AND DISCUSSION: In this 87-year-old woman who presented with multiple complex medical issues, we will monitor the patient closely, continue the current medications, continue symptomatic treatment. Otherwise at this time I recommend unstable angina protocol. Cardiology consultation. Rule out myocardial infarction. Resume the home medications. Prognosis guarded because of multiple complex medical issues. Further recommendations to follow. Copy of dictation being forwarded to Dr. Reid who is the primary physician. MMODL / IJN: [id number] / MTDGertrude
[2017-04-14 22:16] LABS: Creatine Kinase 38 U/L (30-135)
[2017-04-14 22:29] LABS: Creatine Kinase MB 0.4 ng/mL (0.0-2.4); Troponin I <0.012 ng/mL (0.000-0.034)
[2017-04-15 03:29] LABS: Basophils # (A) 0.1 k/uL (0-0.2); Basophils % (A) 1 %; Eosinophils # (A) 0.3 k/uL (0-0.7); Eosinophils % (A) 3 %; HCT 42.6 % (34.0-46.0); HGB 13.5 gm/dL (11.4-16.0); Lymphocytes # (A) 2.8 k/uL (1.0-4.8); Lymphocytes % (A) 30 %; MCH 29.2 pg (25.0-35.0); MCHC 31.7 g/dL (31.0-37.0); MCV 91.9 fL (80.0-100.0); Mean Platelet Volume 7.7; Monocytes # (A) 0.7 k/uL (0-1.0); Monocytes % (A) 7 %; Neutrophils # (A) 5.4 k/uL (1.3-7.7); Neutrophils % (A) 58 %; Platelet Count 465 k/uL (150-450); RBC 4.64 m/uL (3.80-5.40); RDW 13.5 % (11.5-15.5); WBC 9.3 k/uL (3.8-10.6)
[2017-04-15 03:46] LABS: Anion Gap 7 mmol/L; Blood Urea Nitrogen 15 mg/dL (7-17); Calcium 8.9 mg/dL (8.4-10.2); Carbon Dioxide 26 mmol/L (22-30); Chloride 110 mmol/L (98-107); Cholesterol 94 mg/dL (<200); Glucose 85 mg/dL (74-99); HDL Cholesterol 45 mg/dL (40-60); LDL Cholesterol,Calculated 36 mg/dL (0-99); Potassium 4.6 mmol/L (3.5-5.1); Sodium 143 mmol/L (137-145); Triglycerides 64 mg/dL (<150)
[2017-04-15] MEDS: ASPIRIN 325 MG TAB PO SCH (11:57)
[2017-04-15] MEDS: ATORVASTATIN 80 MG TAB PO SCH ×2 (11:58→20:00)
[2017-04-15] MEDS: MAGNESIUM OXIDE 400 MG TAB PO SCH (12:02)
[2017-04-15] MEDS: CALCIUM CARB-VIT D 500MG-200UN 1 EACH TAB PO SCH (12:02)
[2017-04-15] MEDS: LISINOPRIL 5 MG TAB PO SCH (12:02)
[2017-04-15] MEDS: CHOLECALCIFEROL 1,000 UNIT TAB PO SCH (12:02)
[2017-04-15] MEDS: METOPROLOL TARTRATE 25 MG TAB PO SCH ×2 (12:02→20:00)
[2017-04-15] MEDS: MULTIVITAMINS, THERA 1 EACH TAB PO SCH (12:02)
--- NOTE | 2017-04-15 12:19 | CONS ---
CONSULTATION This is an 87-year-old lady with a known history of CAD who underwent stenting of a circumflex marginal vessel performed by Dr. Kelley in year 2014. She sees Dr. Hicks in the office. She has been doing fairly well. She actually had a stress test in April of 2016, which revealed evidence of his old IL without ischemia. She comes in this time with an episode of what she describes as a left arm pain. The quality of her pain is quite atypical. She also had some sharp pain in the chest, but most of the pain was located in the left arm and there was some radiation to the fingers of the left arm. This occurred at rest and with activity. She has no symptoms. Three sets of troponins are unremarkable. Her EKG also does not reveal any acute changes. There is evidence of sinus rhythm with isolated PVCs, but no acute changes. She is resting comfortably without symptoms. I explained to her that circumflex disease is generally not very evident on an EKG and troponins are normal. If she has recurrence of pain, I would do cardiac catheterization, but she is reluctant to have any procedures performed. 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 She wishes to go home this afternoon. I have advised that we discontinue heparin and increase activity. If she has no further symptoms, she can be discharged, but if she has symptoms, we should consider coronary angiography. PAST MEDICAL HISTORY: 1. Hypertension. 2. History of CAD with stenting of circumflex marginal in 2014. 3. History of hyperlipidemia. MEDICATIONS: At home include Lipitor 20 mg daily, aspirin 81 mg daily, lisinopril 5 mg daily, vitamin supplements. ALLERGIES: No known drug allergies. EXAMINATION: Blood pressure is 136/72, pulse rate is 70 per minute and regular. HEENT unremarkable. Fundus was not examined by me. Neck is supple. No JVD. I do not hear a carotid bruit. There is no thyromegaly. Heart exam reveals S1, S2 heard normally. No significant murmurs. Lungs are clear. Abdomen is soft, nontender. Lower extremities reveal normal pulses. No edema. Central nervous system is normal. EKG revealed sinus mechanism, no acute changes. IMPRESSION: 1. Chest pain syndrome. Cannot exclude angina. Troponins are negative. 2. History of PCI of circumflex marginal in 2014. 3. Hypertension. 4. Hyperlipidemia. RECOMMENDATIONS: If the patient has no further chest pain, we will increase activity, discontinue heparin and let her go home. If she has any symptoms, I am recommending coronary angiography. Discussed at length with the patient and daughter. Thank you very much for the consult. JOAQUÍN / KYLER: [id number] /
[2017-04-15] MEDS ORDERED: ACETAMINOPHEN TAB 325 MG TAB PO PRN (14:14)
[2017-04-15] MEDS: MELATONIN 3 MG TABLET PO SCH (19:57)
[2017-04-15] MEDS: CLOBETASOL PROP 0.05% OINT 15GM TOPICAL SCH (19:57)
--- NOTE | 2017-04-15 22:55 | PN ---
PROGRESS NOTE DATE OF SERVICE: 04/15/2017. INTERVAL HISTORY: This 87-year-old woman was admitted with chest pain, being closely monitored. Patient is complaining of a headache and severe in the nape of the neck. Cardiology following the patient closely. No chest pain. No palpitations currently. PHYSICAL EXAM: Alert and oriented x3. Pulse 79. Blood pressure 164/70, respirations 16, temperature 98.2, pulse ox 92% on room air. HEENT: Conjunctivae normal. Neck is no jugular venous distention. No thyroid enlargement. No neck stiffness. Cardiovascular S1, S2. No S3, no S4. RESPIRATORY: Breath sounds diminished in the bases. No rhonchi and no crackles. ABDOMEN: Soft, nontender. Legs are no edema. No swelling. Central nervous system: No focal deficits. LABS: CBC within normal limits and sodium 143. ASSESSMENT: 1. Chest pain possible unstable angina. 2. Headache for evaluation. 3. History of coronary artery disease stent. 4. Hyperlipidemia. 5. History of myocardial infarction. 6. History of syncope. 7. History of degenerative joint disease. RECOMMENDATIONS AND DISCUSSION: Recommend to continue current medications, management, and symptomatic treatment. Otherwise at this time closely follow with Cardiology for possible further evaluation. Otherwise the patient is nonfocal at this time, but we will closely monitor headache as well. Prognosis guarded because of multiple complex medical issues. Further recommendations to follow. MMODL / IJN: [id number] / MTDD
[2017-04-16 07:03] LABS: Mean Platelet Volume 7.6; Platelet Count 485 k/uL (150-450)
[2017-04-16] MEDS ORDERED: SODIUM CHLORIDE 0.9% 1,000 ML in EMPTY BAG 1 BAG IV ONE (10:12)
[2017-04-16] MEDS: CHOLECALCIFEROL 1,000 UNIT TAB PO SCH (11:00)
[2017-04-16] MEDS: ATORVASTATIN 80 MG TAB PO SCH ×2 (11:00→20:36)
[2017-04-16] MEDS: LISINOPRIL 5 MG TAB PO SCH (11:00)
[2017-04-16] MEDS: MAGNESIUM OXIDE 400 MG TAB PO SCH (11:00)
[2017-04-16] MEDS: METOPROLOL TARTRATE 25 MG TAB PO SCH ×2 (11:00→23:39)
[2017-04-16] MEDS: MULTIVITAMINS, THERA 1 EACH TAB PO SCH (11:01)
[2017-04-16] MEDS: CALCIUM CARB-VIT D 500MG-200UN 1 EACH TAB PO SCH (11:01)
[2017-04-16] MEDS: ASPIRIN 325 MG TAB PO SCH (11:01)
--- NOTE | 2017-04-16 12:23 | P.PN ---
Subjective Progress Note Date: 04/16/17 Mrs. Trevino is see today in follow-up. She is sitting up in bed in no acute distress. She states she was up and walking in the halls frequently yesterday and never had any further symptoms of chest pain. However she did feel a tightening sensation in her left neck. This did go away on its own. She denies shortness of breath, palpitations, nausea, vomiting or diaphoresis. She would like to proceed with cardiac catheterization as was discussed yesterday with Dr. Barreto. Vital signs have remained stable. Telemetry tracings have been unremarkable. Objective - Vital Signs Vital signs: Vital Signs Temp 97.8 F 04/16/17 08:00 Pulse 74 04/16/17 08:00 Resp 16 04/16/17 08:00 BP 147/88 04/16/17 08:00 Pulse Ox 97 04/16/17 08:00 Intake & Output 04/15/17 04/16/17 04/16/17 18:59 06:59 18:59 Intake Total 450 Balance 450 Intake: Oral 450 Other: Voiding Method Toilet Toilet # Voids 2 2 - Exam Blood pressure 147/88 heart rate 74 afebrile GENERAL: Well-appearing, well-nourished and in no acute distress. NECK: Supple without JVD or thyromegaly. LUNGS: Breath sounds clear to auscultation bilaterally. Respiration equal and unlabored. No wheezes, rales or rhonchi. HEART: Regular rate and rhythm without murmurs, rubs or gallops. S1 and S2 heard. EXTREMITIES: Normal range of motion, no edema. No clubbing or cyanosis. Peripheral pulses intact and strong. - Labs CBC & Chem 7: 04/16/17 06:25 04/15/17 03:10 Labs: Abnormal Lab Results - Last 24 Hours (Table) 04/16/17 Range/Units 06:25 Plt Count 485 H (150-450) k/uL Assessment and Plan Assessment: ASSESSMENT 1. Chest pain, atypical. An acute coronary event has been ruled out with no EKG evidence of ischemia and negative cardiac enzymes. However, she continues to have vague non-specific pain in the neck with activity. 2. History of known coronary artery disease with angioplasty of first OM in 2014 3. Hypertension 4. Dyslipidemia PLAN We again recommend she undergo cardiac catheterization to evaluate for progression of coronary artery disease. I have discussed the risks, benefits and alternative therapies for the above-mentioned procedure and for both sedation/analgesia as well as necessary blood product administration, if indicated, as they pertain to this patient. The patient has indicated understanding and acceptance of the risks and procedures discussed. Questions have been answered appropriately and she is agreeable to proceed with above stated procedure. This has been discussed with Dr. Kelley and she will be boarded for tomorrow morning. Further recommendations to follow based upon catheterization findings. Nurse Practitioner note has been reviewed, I agree with a documented findings and plan of care. Patient was seen and examined.
--- NOTE | 2017-04-16 17:26 | PN ---
PROGRESS NOTE DATE OF SERVICE: 04/16/2017. INTERVAL HISTORY: This 87-year-old woman was admitted with chest pain also had headache yesterday. Cardiology evaluating the patient for possible cardiac cath tomorrow. No chest pain. No palpitations. No fever. No headache today. EXAM: Alert and oriented x3. Pulse is 61, blood pressure 100/49, respiration 18, temperature 98.2, pulse ox 94% room air. HEENT: Conjunctivae normal. Neck: No jugular venous distention. Cardiovascular: S1, S2 muffled. Respirations: No rhonchi. No crackles. Abdomen is soft, nontender. Legs are no edema, no swelling. Central nervous system: No focal deficits. LABORATORY DATA: CBC within normal limits. ASSESSMENT: 1. Chest pain possible unstable angina. 2. Headache, improved. 3. History of coronary artery disease/stent. 4. Hyperlipidemia. 5. History of myocardial infarction. 6. History of syncope. 7. History of degenerative joint disease. RECOMMENDATIONS AND DISCUSSION: Recommend to continue medications, symptomatic treatment, current management and follow closely with Cardiology. Possible stress test, possible cardiac cath. Continue the rest of the medications. Guarded prognosis because of multiple complex medical issues and further recommendations to follow. MMODL / IJN: [id number] /
[2017-04-16] MEDS ORDERED: ESTROGENS, CONJUGATED 0.625 MG/GM VAGINAL CREAM 42.5 GM TUBE VAGINAL SCH (19:36)
[2017-04-16] MEDS: ASPIRIN 81 MG PO SCH (20:34)
[2017-04-16] MEDS: CLOBETASOL PROP 0.05% OINT 15GM TOPICAL SCH (20:35)
[2017-04-16] MEDS: MELATONIN 3 MG TABLET PO SCH (20:35)
[2017-04-17] MEDS: ATORVASTATIN 80 MG TAB PO SCH (06:44)
[2017-04-17] MEDS: METOPROLOL TARTRATE 25 MG TAB PO SCH ×2 (06:44→21:45)
[2017-04-17] MEDS: MAGNESIUM OXIDE 400 MG TAB PO SCH (06:44)
[2017-04-17] MEDS: LISINOPRIL 5 MG TAB PO SCH (06:45)
[2017-04-17] MEDS ORDERED: ASPIRIN 81 MG PO STA (09:15)
[2017-04-17] MEDS ORDERED: MIDAZOLAM 2 MG/2 ML VIAL ONE (11:13)
[2017-04-17] MEDS ORDERED: LIDOCAINE 2% INJ 20 MG/ML (20 ML MDV) ONE (11:14)
[2017-04-17] MEDS ORDERED: VERAPAMIL 2.5 MG/ML 2 ML AMP ONE (11:23)
[2017-04-17] MEDS ORDERED: MIDAZOLAM 2 MG/2 ML VIAL IVP ONE (11:32)
[2017-04-17] MEDS ORDERED: SODIUM CHLORIDE 0.9% 1,000 ML IV ONE (11:32)
[2017-04-17] MEDS ORDERED: LIDOCAINE 2% INJ 20 MG/ML SQ ONE ×3 (11:33→11:44)
[2017-04-17] MEDS ORDERED: HEPARIN SODIUM 1,000 UN/ML (10ML VL) ONE (11:35)
[2017-04-17] MEDS ORDERED: VERAPAMIL SYRINGE (5 MG/10 ML) INTRAARTER ONE ×2 (11:36→11:43)
[2017-04-17] MEDS ORDERED: HEPARIN SODIUM 1,000 UN/ML (10ML VL) IV ONE (11:36)
[2017-04-17] MEDS ORDERED: NITROGLYCERIN 1000MCG/10ML SYRINGE INTRACORON ONE (11:54)
[2017-04-17] MEDS ORDERED: IOHEXOL 350 MG/ML 125ML BOTTLE INJ ONE (12:00)
[2017-04-17] MEDS ORDERED: RX INFO: IV CONTRAST WAS GIVEN 1 EACH MISC MISCELLANE PRN (12:02)
[2017-04-17] MEDS ORDERED: SODIUM CHLORIDE 0.9% 1,000 ML IV SCH (12:15)
--- NOTE | 2017-04-17 12:57 | LTR ---
April 17, 2017 Re: Diane Trevino Dear Dr. Reid: Ms. Diane Trevino presented to the hospital with chest discomfort and she underwent a heart catheterization and that revealed patent stent in the first obtuse marginal branch of the left circumflex. Maximized medical treatment is recommended at this point of time and I want to thank you for allowing us to participate in her care. Sincerely, MD JOAQUÍN Beth / KYLER: [id number] /
--- NOTE | 2017-04-17 13:09 | CC ---
CARDIAC CATHETERIZATION REPORT DATE OF SERVICE: 04/17/2017 PERFORMING PHYSICIAN: Ilya Kelley MD, Salvager. PROCEDURE PERFORMED: 1. Selective right and left coronary angiogram. 2. Left heart catheterization. INDICATION: This is a pleasant 87-year-old female patient who is known to have coronary artery disease and prior stenting of the first OM branch of the left circumflex, presented to the hospital with chest discomfort concerning for angina. In view of that, a heart catheterization was recommended. APPROACH: Right radial artery and right common femoral artery. COMPLICATION: None. LEVEL OF SEDATION: Moderate with a sedation length of 30 minutes. PROCEDURE DESCRIPTION: After obtaining an informed consent, the patient was brought to the [facility] [employer] [facility]. The right radial artery was cannulated using micropuncture technique, the micropuncture wire passed easily. Then I placed a 6-Mongolian sheath in the right radial artery. After that, I did give the patient 2 mg of verapamil IA and 6000 units of heparin IV. I attempted engaging the right coronary artery from the right radial artery, but I was unable to in view of the severe spasm in the right radial artery and extreme tortuosity. For that reason, I decided to abort to the right radial approach and access the right common femoral artery. The right common femoral artery was cannulated using micropuncture technique and a micropuncture wire passed easily. Then I placed a 6- Mongolian sheath in the right common femoral artery. Then I did selective right and left coronary angiogram using JR4 and JL4 catheters. After that, I did left heart catheterization using 6-Mongolian pigtail catheter. The procedure was completed without any complication. SELECTIVE CORONARY ANGIOGRAM: 1. The right coronary artery is a large caliber vessel and is a dominant vessel. The proximal RCA has mild to moderate disease only. The mid RCA has mild disease only and the RCA distally appeared to be angiographically normal and bifurcates into PDA and PLV branches. The PDA branch is angiographically normal. The PLV branch has intermediate lesion about 50%. 2. The left main has mild disease in the ostium. It bifurcates into the left circumflex and left anterior descending artery. 3. The left circumflex is a moderate caliber vessel and it is a nondominant vessel. The proximal left circumflex appeared to have mild disease only and gives rise into a medium-size first OM branch which is stented with mild in-stent restenosis. The mid left circumflex appeared to have mild disease only and the left circumflex distally appeared to have mild disease only as well. 4. The left anterior descending artery, the proximal LAD appeared to be angiographically normal and gives rise into a diagonal branch which seems to be angiographically normal. The mid LAD and distal LAD are angiographically normal. HEMODYNAMICS: The left ventricular end-diastolic pressure was 12 mmHg and no gradient was identified across the aortic valve. CONCLUSION: Patent stent in the first obtuse marginal branch of the left circumflex coronary artery. POSTPROCEDURE MANAGEMENT: Maximize medical treatment and follow up with the patient. MMODL / IJN: [id number] /
[2017-04-17] MEDS: CHOLECALCIFEROL 1,000 UNIT TAB PO SCH (17:06)
[2017-04-17] MEDS: MULTIVITAMINS, THERA 1 EACH TAB PO SCH (17:06)
[2017-04-17] MEDS: CALCIUM CARB-VIT D 500MG-200UN 1 EACH TAB PO SCH (17:06)
--- NOTE | 2017-04-17 20:00 | PN ---
PROGRESS NOTE DATE OF SERVICE: 04/17/2017 This 87-year-old woman who was admitted with chest pain, has history of also had cardiac catheterization today. Cardiac cath showed patent stents. No chest pain. No palpitations. No fever. EXAM: Alert and oriented x3. The pulse is 63. Blood pressure is 130/60, respiration 20, temperature normal, pulse ox 98% on room air. HEENT: Conjunctivae normal. Neck is no jugular venous distention. Cardiovascular: S1, S2 muffled. Respirations: Breath sounds diminished in the bases. No rhonchi and no crackles. Abdomen is soft, nontender. Legs are no edema. No swelling. Central nervous system: No focal deficits. LABORATORY DATA: CBC and BMP normal limits. ASSESSMENT: 1. Chest pain possible unstable angina, status post cardiac catheterization and patent stent. 2. Headache, improved. 3. History of coronary artery disease, stent. 4. Hyperlipidemia. 5. History of myocardial infarction. 6. History of syncope. 7. History of degenerative joint disease. RECOMMENDATIONS AND DISCUSSION: I recommend to continue current medication, continue symptomatic treatment. Otherwise closely monitor and guarded prognosis because of multiple complex medical issues and further recommendations to follow. Continue the rest of medications. Closely follow with Cardiology. Further recommendations to follow. MMODL / IJN: [id number] /
[2017-04-17] MEDS: ASPIRIN 325 MG TAB PO SCH (21:45)
[2017-04-17] MEDS: ASPIRIN 81 MG PO SCH (21:46)
[2017-04-17] MEDS: CLOBETASOL PROP 0.05% OINT 15GM TOPICAL SCH (21:47)
[2017-04-17] MEDS: MELATONIN 3 MG TABLET PO SCH (21:47)
[2017-04-18 03:40] VITALS: TEMP 97.9
[2017-04-18 08:21] VITALS: BP 145/83; PULSE 69; RESP 18
[2017-04-18] MEDS: LISINOPRIL 5 MG TAB PO SCH (09:47)
[2017-04-18] MEDS: MAGNESIUM OXIDE 400 MG TAB PO SCH (09:47)
[2017-04-18] MEDS: ATORVASTATIN 80 MG TAB PO SCH (09:47)
[2017-04-18] MEDS: METOPROLOL TARTRATE 25 MG TAB PO SCH (09:47)
[2017-04-18] MEDS: CALCIUM CARB-VIT D 500MG-200UN 1 EACH TAB PO SCH (09:47)
[2017-04-18] MEDS: CHOLECALCIFEROL 1,000 UNIT TAB PO SCH (09:48)
[2017-04-18] MEDS: MULTIVITAMINS, THERA 1 EACH TAB PO SCH (12:28)
--- NOTE | 2017-04-19 06:01 | DS ---
DISCHARGE SUMMARY DATE OF SERVICE: FINAL DIAGNOSES: 1. Chest pain, possible unstable angina, status post cardiac catheterization and patent stent. 2. Headache, improved. 3. History of coronary artery disease, stent. 4. Hyperlipidemia. 5. History of myocardial infarction. 6. History of syncope. 7. History of degenerative joint disease. DISCHARGE DISPOSITION: The patient will be discharged in stable condition with guarded prognosis. HISTORY OF PRESENT ILLNESS: This 87-year-old woman with a past medical history of multiple medical problems admitted with chest pain, myocardial infarction ruled out. Cardiology performed a cardiac catheterization, stent was patent. The patient improved significantly. On exam, vitals are stable. CARDIOVASCULAR: S1 and S2 muffled. ABDOMEN: Soft. NERVOUS SYSTEM: No focal deficits. This patient was discharged in stable condition with guarded prognosis with Cardiology clearance. MEDICATIONS: 1. Aspirin 81 mg q.h.s. 2. Lipitor 20 mg q.h.s. 3. Calcium with vitamin D 1 p.o. daily. 4. Vitamin D3, 1000 daily. 5. Clobetasol topically. 6. Estrogens topically. 7. Zestril 5 mg p.o. daily. 8. Magnesium oxide 500 mg p.o. daily. 9. Multivitamins 1 p[address]. daily[address] Follow up Dr. Hicks and Dr. Reid as recommended. Once again, the patient will be discharged in a stable condition with a guarded prognosis. MMODL / IJN: [id number] /
== END 2017-04-18 12:35 | disposition home or self-care (01) | DRG 287 ==
LOC: EC 09:28 → 3OBS 12:17 → OBSVTOIN 04-17 08:05
PROVIDERS: ADMIT Hospitalist; ATTEND Hospitalist
PROC: B2111ZZ Fluoroscopy of Multiple Coronary Arteries using Low Osmolar Contrast (ICD-10-PCS; principal; 2017-04-17 11:16)
PROC: B2151ZZ Fluoroscopy of Left Heart using Low Osmolar Contrast (ICD-10-PCS; principal; 2017-04-17 11:16)
PROC: 4A023N7 Measurement of Cardiac Sampling and Pressure, Left Heart, Percutaneous Approach (ICD-10-PCS; principal; 2017-04-17 11:16)
DX: I25.110 Atherosclerotic heart disease of native coronary artery with unstable angina pectoris (principal); I11.9 Hypertensive heart disease without heart failure; E78.5 Hyperlipidemia, unspecified; I25.2 Old myocardial infarction; I49.3 Ventricular premature depolarization; M19.90 Unspecified osteoarthritis, unspecified site; Z79.82 Long term (current) use of aspirin; Z82.49 Family history of ischemic heart disease and other diseases of the circulatory system; Z90.49 Acquired absence of other specified parts of digestive tract; Z90.710 Acquired absence of both cervix and uterus; Z95.5 Presence of coronary angioplasty implant and graft; Z96.1 Presence of intraocular lens; Z98.41 Cataract extraction status, right eye; Z98.42 Cataract extraction status, left eye; R51 Headache; Z79.899 Other long term (current) drug therapy
CPT/HCPCS: 36415; 71046; 80048; 80053; 80061; 82550; 82553; 83735; 84484; 85025; 85049; 85610; 85730; 93005; 93458; 96365; 96366; 96376; 99291

== ENCOUNTER → 2018-08-22 | Outpatient (CLI) | payer MEDICARE ==
[2018-08-22 07:55] LABS: Basophils % (A) 0 %; Eosinophils # (A) 0.1 k/uL (0-0.7); Eosinophils % (A) 2 %; HCT 41.5 % (34.0-46.0); HGB 13.6 gm/dL (11.4-16.0); Lymphocytes # (A) 1.8 k/uL (1.0-4.8); Lymphocytes % (A) 39 %; MCH 38.8 pg (25.0-35.0); MCHC 32.8 g/dL (31.0-37.0); MCV 118.4 fL (80.0-100.0); Macrocytosis Marked; Mean Platelet Volume 7.1; Monocytes # (A) 0.3 k/uL (0-1.0); Monocytes % (A) 6 %; Neutrophils # (A) 2.4 k/uL (1.3-7.7); Neutrophils % (A) 51 %; Platelet Count 271 k/uL (150-450); RDW 12.6 % (11.5-15.5); WBC 4.8 k/uL (3.8-10.6)
[2018-08-22 11:04] LABS: African American GFR (CKD) 76.3 (60.0-200.0); Albumin 4.2 g/dL (3.80-4.90); Albumin/Globulin Ratio 2.21 (1.60-3.17); Anion Gap 7.9 mmol/L (4.00-12.00); BUN/Creat Ratio 17.5 Ratio (12.00-20.00); Calcium 9.6 mg/dL (8.7-10.3); Carbon Dioxide 31.1 mmol/L (21.6-31.8); Globulin 1.9 g/dL (1.6-3.3); Potassium 4.2 mmol/L (3.5-5.5); Total Bilirubin 0.8 mg/dL (0.2-1.2); Total Protein 6.1 g/dL (6.2-8.2)
== END | disposition home or self-care (01) ==
LOC: LABWHC1 06:49
PROVIDERS: ATTEND Family Medicine
DX: I25.10 Atherosclerotic heart disease of native coronary artery without angina pectoris (principal); E78.5 Hyperlipidemia, unspecified; R53.83 Other fatigue
CPT/HCPCS: 36415; 80053; 80061; 84439; 84443; 85025

== ENCOUNTER 2018-08-25 13:15 | Inpatient (IN) | payer MEDICARE ==
[2018-08-25] MEDS ORDERED: KETOROLAC 30 MG/ML 1 ML VIAL IVP STA (13:55)
[2018-08-25 14:21] LABS: Basophils % (A) 1 %; Eosinophils # (A) 0.1 k/uL (0-0.7); Eosinophils % (A) 3 %; HCT 43.7 % (34.0-46.0); HGB 14.8 gm/dL (11.4-16.0); Lymphocytes # (A) 1.5 k/uL (1.0-4.8); Lymphocytes % (A) 28 %; MCH 38.7 pg (25.0-35.0); MCHC 33.9 g/dL (31.0-37.0); MCV 114.3 fL (80.0-100.0); Macrocytosis Marked; Mean Platelet Volume 8.8; Monocytes # (A) 0.3 k/uL (0-1.0); Monocytes % (A) 6 %; Neutrophils # (A) 3.3 k/uL (1.3-7.7); Neutrophils % (A) 60 %; Platelet Count 256 k/uL (150-450); RBC 3.82 m/uL (3.80-5.40); RDW 13.6 % (11.5-15.5); WBC 5.4 k/uL (3.8-10.6)
[2018-08-25 14:41] LABS: Albumin 4.7 g/dL (3.5-5.0); Calcium 9.9 mg/dL (8.4-10.2); Magnesium 2.2 mg/dL (1.6-2.3); Potassium 4.1 mmol/L (3.5-5.1); Total Bilirubin 0.6 mg/dL (0.2-1.3); Total Protein 7.7 g/dL (6.3-8.2)
--- NOTE | 2018-08-25 14:51 | XR ---
EXAMINATION TYPE: XR chest 2V DATE OF EXAM: 08/25/2018 COMPARISON: 04/14/2017 HISTORY: 88-year-old female with chest pain TECHNIQUE: AP and lateral views FINDINGS: Heart normal size. Mild ectasia/elongation thoracic aorta with arch calcifications. Mild interstitial prominence and mild hyperinflation. No consolidation or pleural effusion. IMPRESSION: Chronic changes, possible underlying COPD. No acute cardiopulmonary process.
[2018-08-25 15:10] LABS: INR 0.9 (<1.2); Partial Thromboplastin Time 21.9 sec (22.0-30.0); Prothrombin Time 9.8 sec (9.0-12.0)
--- NOTE | 2018-08-25 15:36 | ED ---
Chest Pain HPI - General Chief Complaint: Chest Pain Stated Complaint: Arm pain Time Seen by Provider: 08/25/18 13:42 Source: patient, family Mode of arrival: wheelchair Limitations: no limitations - History of Present Illness Initial Comments: The patient is an 88-year-old female who presents to the emergency room with complaint of chest pain. The patient admits that the pain started one week ago. It is located in her left chest and shoulder with radiation into her left arm. She denies any numbness or weakness. No numbness or weakness in her lower extremity. The pain only lasted for a short period of time then fully resolved. The pain then returned today. She did take a nitro at home and it improved her symptoms. She does see Dr. Barrios for cardiology. She has an appointment to see him on September 06 in his office. She had carotid Dopplers performed on . States she also has yearly Holter monitoring performed. The patient has one stent in her heart which was placed 3 years ago. She is not on the any anticoagulation. She denies ripping or tearing sensation to her back. No palpitations. Denies nausea, vomiting or diaphoresis. She denies confusion or slurred speech. No history of CVA. No fevers, chills, cough. There are no alleviating, precipitating or modifying factors - Related Data Home Medications Medication Instructions Recorded Confirmed Magnesium Oxide [Mag-Ox] 500 mg PO DAILY 05/14/14 08/25/18 Multivitamins, Thera [Multivitamin 1 tab PO DAILY 05/14/14 08/25/18 (formulary)] Aspirin 81 mg PO HS 11/08/14 08/25/18 Atorvastatin [Lipitor] 20 mg PO HS 05/01/16 08/25/18 Cholecalciferol [Vitamin D3 (25 1,000 unit PO DAILY 05/01/16 08/25/18 Mcg = 1000 Iu)] Calcium Carbonate/Vitamin D3 1 tab PO DAILY 04/14/17 08/25/18 [Calcium 600-Vit D3 400 Caplet] Estrogens, Conjugated Cream 1 applic VAGINAL Q14D 08/25/18 08/25/18 [Premarin Cream] Hydroxyurea [Hydrea] 500 mg PO DAILY 08/25/18 08/25/18 Triamterene-Hctz 37.5-25Mg 1 tab PO DAILY 08/25/18 08/25/18 [Maxzide 37.5-25] Allergies Allergy/AdvReac Type Severity Reaction Status Date / Time nickel Allergy Rash/Hives Verified 08/25/18 14:46 Review of Systems ROS Statement: Those systems with pertinent positive or pertinent negative responses have been documented in the HPI. ROS Other: All systems not noted in ROS Statement are negative. EKG Findings - EKG Comments: EKG Findings:: EKG demonstrates a normal sinus rhythm with a ventricular rate of 74. NM interval 168. QRS 84 QTC 432. There are minor peaked T waves in V2V3. No ST segment elevation or depressions. 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 Last Myocardial Infarction Date:: 2014 History of Any Multi-Drug Resistant Organisms: None Reported Past Surgical History: Appendectomy, Heart Catheterization With Stent, Hysterectomy, Joint Replacement, Tonsillectomy Additional Past Surgical History / Comment(s): L total knee, bilateral cataract removal with lens implants, colonoscopy with polypectomies which were benign. 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 Past Anesthesia/Blood Transfusion Reactions: Postoperative Nausea & Vomiting (PONV) Additional Past Anesthesia/Blood Transfusion Reaction / Comment(s): PONV with her hysterectomy. Date of Last Stent Placement:: 05/15/2014 Past Psychological History: No Psychological Hx Reported Smoking Status: Never smoker Past Alcohol Use History: None Reported Past Drug Use History: None Reported - Past Family History Father Family Medical History: No Reported History Additional Family Medical History / Comment(s): Father of complications from a MVA Mother Family Medical History: Congestive Heart Failure (CHF), Coronary Artery Disease (CAD) Additional Family Medical History / Comment(s): Mother had rheumaic fever. General Exam Limitations: no limitations General appearance: alert, in no apparent distress Head exam: Present: atraumatic, normocephalic, normal inspection Eye exam: Present: normal appearance, PERRL, EOMI. Absent: scleral icterus, conjunctival injection, periorbital swelling ENT exam: Present: normal exam, mucous membranes moist Neck exam: Present: normal inspection. Absent: tenderness, meningismus, lymphadenopathy Respiratory exam: Present: normal lung sounds bilaterally. Absent: respiratory distress, wheezes, rales, rhonchi, stridor Cardiovascular Exam: Present: regular rate, normal rhythm, normal heart sounds. Absent: systolic murmur, diastolic murmur, rubs, gallop, clicks GI/Abdominal exam: Present: soft, normal bowel sounds. Absent: distended, tenderness, guarding, rebound, rigid Extremities exam: Present: normal inspection, full ROM, normal capillary refill, other (No tenderness to palpation of left upper extremity. Compartments are soft). Absent: tenderness, pedal edema, joint swelling, calf tenderness Back exam: Present: normal inspection Neurological exam: Present: alert, oriented X3, CN II-XII intact Psychiatric exam: Present: normal affect, normal mood Skin exam: Present: warm, dry, intact, normal color. Absent: rash Course Vital Signs 08/25/18 08/25/18 08/25/18 13:27 14:07 14:10 Temperature 98.0 F Pulse Rate 92 80 Pulse Rate [ [employer] ] Respiratory 18 18 Rate Blood Pressure 113/57 135/69 O2 Sat by Pulse 97 99 96 Oximetry 08/25/18 08/25/18 08/25/18 14:20 14:30 14:37 Temperature Pulse Rate 73 Pulse Rate [ 92 [employer] ] Respiratory 16 Rate Blood Pressure 135/69 135/69 O2 Sat by Pulse 98 Oximetry 08/25/18 08/25/18 08/25/18 14:40 14:50 14:59 Temperature Pulse Rate 71 68 68 Pulse Rate [ [employer] ] Respiratory 20 20 16 Rate Blood Pressure 136/75 136/75 121/71 O2 Sat by Pulse 97 98 96 Oximetry 08/25/18 08/25/18 08/25/18 15:00 15:10 15:20 Temperature Pulse Rate 70 68 68 Pulse Rate [ [employer] ] Respiratory 13 17 20 Rate Blood Pressure 121/71 121/71 121/71 O2 Sat by Pulse 97 98 98 Oximetry 08/25/18 08/25/18 08/25/18 15:30 15:40 15:50 Temperature Pulse Rate 69 66 66 Pulse Rate [ [employer] ] Respiratory 22 15 16 Rate Blood Pressure 121/71 135/74 135/74 O2 Sat by Pulse 98 97 98 Oximetry 08/25/18 08/25/18 08/25/18 16:00 16:10 16:20 Temperature Pulse Rate 68 68 75 Pulse Rate [ [employer] ] Respiratory 20 15 16 Rate Blood Pressure 135/74 125/70 125/70 O2 Sat by Pulse 98 98 97 Oximetry 08/25/18 08/25/18 08/25/18 16:30 16:40 16:50 Temperature Pulse Rate 65 78 75 Pulse Rate [ [employer] ] Respiratory 18 16 20 Rate Blood Pressure 125/70 137/65 137/65 O2 Sat by Pulse 98 98 98 Oximetry 08/25/18 08/25/18 08/25/18 17:00 17:10 17:20 Temperature Pulse Rate 68 72 70 Pulse Rate [ [employer] ] Respiratory 14 22 19 Rate Blood Pressure 137/65 145/76 145/76 O2 Sat by Pulse 97 96 95 Oximetry 08/25/18 08/25/18 08/25/18 17:30 17:40 17:50 Temperature Pulse Rate 75 71 73 Pulse Rate [ [employer] ] Respiratory 16 15 16 Rate Blood Pressure 145/76 133/75 133/75 O2 Sat by Pulse 95 96 96 Oximetry 08/25/18 08/25/18 08/25/18 18:00 18:10 18:20 Temperature Pulse Rate 75 80 73 Pulse Rate [ [employer] ] Respiratory 19 20 17 Rate Blood Pressure 133/75 149/80 149/80 O2 Sat by Pulse 94 L 97 97 Oximetry 08/25/18 08/25/18 08/25/18 18:30 18:40 18:50 Temperature Pulse Rate 72 72 73 Pulse Rate [ [employer] ] Respiratory 17 15 19 Rate Blood Pressure 149/80 147/65 147/65 O2 Sat by Pulse 97 97 97 Oximetry 08/25/18 08/25/18 19:00 19:10 Temperature 98.7 F Pulse Rate 76 75 Pulse Rate [ [employer] ] Respiratory 18 14 Rate Blood Pressure 147/65 133/64 O2 Sat by Pulse 97 96 Oximetry Chest Pain MDM - Core Measures AMI Core Measures Followed: Yes - Differential Diagnosis ACS chest pain - MDM The patient was seen by myself in room 23. She is hooked up to continuous pulse ox and cardiac monitoring. A 12-lead EKG is performed which demonstrates a normal sinus rhythm. We did conduct laboratory studies. The patient does have a chest x-ray performed. Upon return of the results I did discuss them with the patient. I do believe the patient would benefit from overnight observation with continued telemetry monitoring. I also believe the patient should have her troponins trended and see cardiology in the morning. The patient is reluctant however does agree. I did call discuss case with Dr. Neri who agreed to admission. Bridging orders were placed. The patient went to the floor in stable condition - JAZMIN Score Age > 65: (1) Yes 3 or more CAD Risk Factors: (1) Yes Known CAD with more than 50% Stenosis: (0) No Aspirin use within the Past 7 Days: (1) Yes Elevated Cardiac Markers: (0) No ST Deviation Greater than 0.5mm: (0) No Disposition Clinical Impression: Chest pain, Acute coronary syndrome Disposition: ADMITTED IP TO THIS HOSP Condition: Stable Is patient prescribed a controlled substance at d/c from ED?: No Decision to Admit Reason: Admit from EC Decision Date: 08/25/18 Decision Time: 16:55
[2018-08-25] MEDS ORDERED: ASPIRIN 81 MG PO STA (16:52)
[2018-08-25] MEDS ORDERED: NALOXONE 0.4 MG/ML 1 ML VIAL IV PRN (16:55)
[2018-08-25 20:40] VITALS: BMI 21.2
[2018-08-25] MEDS: ATORVASTATIN 20 MG TAB PO SCH (21:14)
[2018-08-25] MEDS: ASPIRIN 81 MG PO SCH (21:14)
[2018-08-25] MEDS ORDERED: ALPRAZolam 0.25 MG TAB PO PRN (23:30)
[2018-08-25] MEDS ORDERED: HYDROcodone/APAP 5-325MG 1 EACH TAB PO PRN (23:30)
--- NOTE | 2018-08-26 00:15 | HP ---
HISTORY AND PHYSICAL DATE OF SERVICE: 08/25/2018 CHIEF COMPLAINT: Chest pain. HISTORY OF PRESENT ILLNESS: This 88-year-old woman with a past medical history of multiple medical problems including hypertension, hyperlipidemia, myocardial infarction, syncope, history of DJD, history of CAD/stenting being followed by Dr. Reid in the outpatient setting is complaining of left arm pain and some left-sided shoulder/chest pain radiating to the left arm for about a week ago. The patient took some nitroglycerin with some relief and the patient was evaluated in Cardiology office and carotid Doppler evaluation has been done but because Sunday patient again had similar symptoms, also had nausea, some lightheaded and dizziness. The patient came to [facility] and was admitted for further evaluation and treatment. The troponins are negative. The patient has significant macrocytosis. Otherwise, the EKG which was done in the ER showed no acute abnormality. There is no history of fever, rigors. No history of headache, loss of consciousness or seizures. The patient had a cardiac catheterization because of unstable angina last March, which showed patent stents. PAST MEDICAL HISTORY: Of hypertension, hyperlipidemia, myocardial infarction, DJD, history of CAD/stent. MEDICATIONS: Prior to admission, home medications are: 1. Maxzide 37.5 mg p.o. daily. 2. Multivitamins 1 daily. 3. Magnesium oxide 500 mg daily. 4. Hydrea 500 mg p.o. daily. 5. Premarin cream 1 application q14 days. 6. Vitamin D 3000 daily. 7. Vitamin D3 1 p.o. daily. 8. Lipitor 20 mg q.h.s. 9. Aspirin 81 mg p.o. q.h.s. ALLERGIES: NICKEL. FAMILY HISTORY: History of motor vehicle accident in the family. SOCIAL HISTORY: No history of smoking. No history of alcohol. REVIEW OF SYSTEMS: ENT: Diminished vision. Diminished hearing. Cardiovascular system: As mentioned earlier. RESPIRATORY: As mentioned. GI no nausea or vomiting. no dysuria. NERVOUS SYSTEM: No numbness or weakness. ALLERGY/IMMUNOLOGY: No asthma or hayfever. MUSCULOSKELETAL as mentioned earlier. HEMATOLOGY/ONCOLOGY: No history of anemia. ENDOCRINE: No history of diabetes or hypothyroidism. CONSTITUTIONAL: As mentioned earlier. Dermatology: Negative. Rheumatology: Negative. Psychiatry: As mentioned earlier. PHYSICAL EXAMINATION: Alert and oriented x3. Pulse 75, blood pressure 130/62, respiration 14, temperature 98.7, pulse ox 98% on room air. HEENT: Conjunctivae normal. NECK: No jugular venous distention. CARDIOVASCULAR: S1, S2 muffled. RESPIRATORY: Breath sounds diminished in the bases. No rhonchi. No crackles. ABDOMEN: Soft, nontender. No mass palpable. LEGS: No edema. No swelling. NERVOUS SYSTEM: Higher functions as mentioned earlier. Moves all four limbs. No focal deficits. Lymphatics: No lymph nodes palpable in the neck, axillae or groin. SKIN: No ulcer, rashes or bleeding. JOINTS: No active deforming arthropathy. LABS: WBC 5.5, MCV 114.3, otherwise AST 39, other labs and troponins are negative. EKG reviewed personally. ASSESSMENT: 1. Chest pain and left arm pain, possible unstable angina. 2. History of coronary artery disease, stent. 3. History of cardiac cath in March last year. 4. Hypertension. 5. Hyperlipidemia. 6. History of myocardial infarction. 7. History of syncope. 8. History of degenerative joint disease. 9. History of tonsillectomy. 10.Macrocytosis. RECOMMENDATIONS AND DISCUSSION: In this 88-year-old woman who presented with multiple complex medical issues, we will monitor the patient closely. Continue the current medications, management and symptomatic treatment. We will resume the home medications. Acute coronary protocol. Cardiology consultation. The patient n.p.o. after midnight. Further recommendations to follow. Prognosis guarded because of above mentioned multiple complex medical issues. We will rule out acute myocardial infarction as well. Discussed with the patient, understands and agrees. Copy of dictation being forwarded to Dr. Reid who is the primary physician. MMODL / IJN: [id number] /
--- NOTE | 2018-08-26 09:09 | US ---
EXAMINATION TYPE: US gallbladder DATE OF EXAM: 08/26/2018 COMPARISON: NONE CLINICAL HISTORY: nausea, lightheadedness and left arm pain EXAM MEASUREMENTS: Liver Length: 11.6 cm Gallbladder Wall: 0.2 cm CBD: 0.2 cm Right Kidney: 9.6 x 5.1 x 3.6 cm Exam is technically limited by intercostal scanning. Pancreas: wnl Liver: Unremarkable given limitations and intercostal scanning. Gallbladder: wnl Evidence for sonographic Corbin's sign: no CBD: wnl Right Kidney: No hydronephrosis or masses seen Upper Aorta: 2.6cm in Transverse, within normal limits. IMPRESSION: No sonographic evidence of cholelithiasis nor acute cholecystitis.
[2018-08-26 10:43] LABS: Cholesterol 143 mg/dL (<200); HDL Cholesterol 56 mg/dL (40-60); LDL Cholesterol,Calculated 67 mg/dL (0-99); Triglycerides 99 mg/dL (<150)
[2018-08-26] MEDS ORDERED: SODIUM CHLORIDE 0.9% 1,000 ML in EMPTY BAG 1 BAG IV ONE (11:06)
[2018-08-26] MEDS ORDERED: NITROGLYCERIN SL TABS 0.4 MG TAB SUBLINGUAL PRN (11:06)
[2018-08-26] MEDS: HYDROXYUREA 500 MG CAP PO SCH (11:28)
[2018-08-26] MEDS: TRIAMTERENE-HCTZ 37.5-25MG 1 EACH TAB PO SCH (11:28)
[2018-08-26] MEDS: MAGNESIUM OXIDE 400 MG TAB PO SCH (11:29)
[2018-08-26] MEDS: MULTIVITAMINS, THERA 1 EACH TAB PO SCH (11:29)
[2018-08-26] MEDS: CHOLECALCIFEROL 1,000 UNIT TAB PO SCH (11:29)
[2018-08-26] MEDS: CALCIUM CARB-VIT D 500MG-200UN 1 EACH TAB PO SCH (11:29)
--- NOTE | 2018-08-26 13:14 | ECHOF ---
Referral Reason: MEASUREMENTS -------- HEIGHT: 154.9 cm WEIGHT: 51.3 kg BP: 133/73 IVSd: 0.8 cm (0.6 - 1.1) LVIDd: 3.3 cm (3.9 - 5.3) LVPWd: 1.0 cm (0.6 - 1.1) IVSs: 1.5 cm LVIDs: 1.5 cm LVPWs: 1.1 cm LAESV Index (A-L): 18.17 ml/m Ao Diam: 3.0 cm (2.0 - 3.7) AV Cusp: 1.6 cm (1.5 - 2.6) LA Diam: 2.6 cm (2.7 - 3.8) MV EXCURSION: 8.330 mm (> 18.000) MV EF SLOPE: 30 mm/s (70 - 150) EPSS: 0.6 cm MV E Pilo: 0.79 m/s MV DecT: 245 ms MV A Pilo: 1.08 m/s MV E/A Ratio: 0.73 RAP: 5.00 mmHg RVSP: 11.95 mmHg FINDINGS -------- Sinus rhythm. This was a technically adequate study. The left ventricular size is normal. Left ventricular wall thickness is normal. Overall left vent ricular systolic function is normal with, an EF between 55 - 60 %. The diastolic filling pattern is normal for the age of the patient 11.77. The right ventricle is normal in size. The left atrial size is normal. Normal LA size by volume 22+/-6 ml/m2. The right atrial size is normal. Interatrial and interventricular septum intact. The aortic valve is trileaflet and appears structurally normal. The mitral valve is normal. Mild mitral regurgitation is present. Mild tricuspid regurgitation present. Right ventricular systolic pressure is normal at < 35 mmHg. There is no pulmonic regurgitation present. The aortic root size is normal. Normal inferior vena cava with normal inspiratory collapse consistent with estimated right atrial pre ssure of 5 mmHg. There is no pericardial effusion. CONCLUSIONS -------- 1. Sinus rhythm. 2. This was a technically adequate study. 3. The left ventricular size is normal. 4. Left ventricular wall thickness is normal. 5. Overall left ventricular systolic function is normal with, an EF between 55 - 60 %. 6. The diastolic filling pattern is normal for the age of the patient 11.77 7. The right ventricle is normal in size. 8. The left atrial size is normal. 9. Normal LA size by volume 22+/-6 ml/m2. 10. The right atrial size is normal. 11. Interatrial and interventricular septum intact. 12. The aortic valve is trileaflet and appears structurally normal. 13. The mitral valve is normal. 14. Mild mitral regurgitation is present. 15. Mild tricuspid regurgitation present. 16. Right ventricular systolic pressure is normal at < 35 mmHg. 17. There is no pulmonic regurgitation present. 18. The aortic root size is normal. 19. Normal inferior vena cava with normal inspiratory collapse consistent with estimated right atrial pressure of 5 mmHg. 20. There is no pericardial effusion. SOFTWARE SECURITY CONSULTANT: Mally Gonsales RDCS
--- NOTE | 2018-08-26 13:31 | P.CRDCN ---
History of Present Illness History of present illness: This is a pleasant 88-year-old female past medical history significant for coronary artery disease, dyslipidemia and hypertension. She follows in the office with Dr. Allan. We have been asked to see her in consultation secondary to chest discomfort. She states she noticed a pain in the left arm 1- week ago described as a pulsing sensation. She took 1 nitro and the pain subs ided. Then throughout the week the week she has experienced intermittent nausea and feeling light headed with no specific aggravating cause. Sunday she again felt nauseated however noticed increased fatigued and overall weakness. She woke up Sunday morning feeling overall ok. However after eating breakfast started having arm discomfort again. There is no radiation of the discomfort to the chest, back, neck or jaw. She denies associated shortness of breath, palpitations, vomiting or diaphoresis. She has had similar episodes in March 2017 prompting her to undergo coronary angiography. This revealed mild to moderate disease of the proximal RCA, PLV branch of the RCA with an intermediate lesion of approximately 50%, mild disease at the ostium of the left main, circumflex with mild disease only. First OM with mild in-stent restenosis, LAD angiographically normal. EKG on arrival reveals sinus mechanism with no acute ST or T wave abnormalities noted. Chest x-ray is negative for an acute cardiopulmonary process with evidence of underlying COPD. Laboratory data reviewed, cardiac enzymes negative 3, WBC 5.4, hemoglobin 14.8, platelets 256, sodium 140, potassium 4.1, creatinine 0.72, magnesium 2.2, LDL 67 HDL 56. Current cardiac medications include aspirin 81 mg daily, atorvastatin 20 mg daily, Maxzide 37.5/25 mg daily. Echocardiogram obtained reveals preserved LV systolic function with ejection fraction 55-60%, mild MR and mild TR noted. At the time of my exam: CONSTITUTIONAL: Denies fever. Denies chills. EYES: Denies blurred vision. Denies vision changes. Denies eye pain. EARS, NOSE, MOUTH & THROAT: Denies headache. Denies sore throat. Denies ear pain. CARDIOVASCULAR: Denies chest pain. Denies shortness of breath. Denies orthopnea. Denies PND. Denies palpitations. RESPIRATORY: Denies cough. GASTROINTESTINAL: Denies abdominal pain. Denies diarrhea. Denies constipation. Denies nausea. Denies vomiting. MUSCULOSKELETAL: Denies myalgias. INTEGUMENTARY: Denies pruitis. Denies rash. NEUROLOGIC: Denies numbness. Denies tingling. Denies weakness. PSYCHIATRIC: Denies anxiety. Denies depression. ENDOCRINE: Denies fatigue. Denies weight change. Denies polydipsia. Denies polyurina. GENITOURINARY: Denies burning, hematuria or urgency with micturation. HEMATOLOGIC: Denies history of anemia. Denies bleeding. Blood pressure 133/73 heart rate 77 afebrile maintaining oxygen saturation on room air GENERAL: This is a 88-year-old female in no apparent distress at the time of my examination. HEENT: Head is atraumatic, normocephalic. Pupils are equal, round. Sclerae anicteric. Conjunctivae are clear. Mucous membranes of the mouth are moist. Neck is supple. There is no jugular venous distention. No carotid bruit is heard. LUNGS: Clear to auscultation no wheezes, rales or rhonchi. No chest wall tenderness is noted on palpation or with deep breathing. HEART: Regular rate and rhythm without murmurs, rubs or gallops. S1 and S2 heard. ABDOMEN: Soft, nontender. Bowel sounds are heard. No organomegaly noted. EXTREMITIES: No evidence of peripheral edema and no calf tenderness noted. VASCULAR: Radial and dorsalis pedis pulses palpated, no evidence of clubbing. NEUROLOGIC: Patient is awake, alert and oriented x3. ASSESSMENT Left arm discomfort suggestive of unstable angina in a patient with known coronary artery disease History of coronary artery disease status post stent placement Hypertension Dyslipidemia PLAN Echocardiogram is been obtained and reviewed. No acute changes from previous study. Acute coronary event has been ruled out. Recommend proceeding with cardiac catheterization to further assess for progression of coronary artery disease. This will take place tomorrow morning with Dr. Kelley who performed her last cath. Ultrasound of the gallbladder performed was unremarkable. Further recommendations to follow. Thank you kindly for this consultation. Nurse Practitioner note has been reviewed, I agree with a documented findings and plan of care. Patient was seen and examined. 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 Last Myocardial Infarction Date:: 2014 History of Any Multi-Drug Resistant Organisms: None Reported Past Surgical History: Appendectomy, Heart Catheterization With Stent, H ysterectomy, Joint Replacement, Tonsillectomy Additional Past Surgical History / Comment(s): L total knee, bilateral cataract removal with lens implants, colonoscopy with polypectomies which were benign. 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 Past Anesthesia/Blood Transfusion Reactions: Postoperative Nausea & Vomiting (PONV) Additional Past Anesthesia/Blood Transfusion Reaction / Comment(s): PONV with her hysterectomy. Date of Last Stent Placement:: 05/15/2014 Past Psychological History: No Psychological Hx Reported Smoking Status: Never smoker Past Alcohol Use History: None Reported Past Drug Use History: None Reported - Past Family History Father Family Medical History: No Reported History Additional Family Medical History / Comment(s): Father of complications from a MVA Mother Family Medical History: Congestive Heart Failure (CHF), Coronary Artery Disease (CAD) Additional Family Medical History / Comment(s): Mother had rheumaic fever. Medications and Allergies Home Medications Medication Instructions Recorded Confirmed Type Magnesium Oxide [Mag-Ox] 500 mg PO DAILY 05/14/14 08/25/18 History Multivitamins, Thera [Multivitamin 1 tab PO DAILY 05/14/14 08/25/18 History (formulary)] Aspirin 81 mg PO HS 11/08/14 08/25/18 History Atorvastatin [Lipitor] 20 mg PO HS 05/01/16 08/25/18 History Cholecalciferol [Vitamin D3 (25 1,000 unit PO DAILY 05/01/16 08/25/18 History Mcg = 1000 Iu)] Calcium Carbonate/Vitamin D3 1 tab PO DAILY 04/14/17 08/25/18 History [Calcium 600-Vit D3 400 Caplet] Estrogens, Conjugated Cream 1 applic VAGINAL Q14D 08/25/18 08/25/18 History [Premarin Cream] Hydroxyurea [Hydrea] 500 mg PO DAILY 08/25/18 08/25/18 History Triamterene-Hctz 37.5-25Mg 1 tab PO DAILY 08/25/18 08/25/18 History [Maxzide 37.5-25] Allergies Allergy/AdvReac Type Severity Reaction Status Date / Time nickel Allergy Rash/Hives Verified 08/25/18 14:46 Physical Exam Vitals: Vital Signs Temp Pulse Pulse Resp BP BP Pulse Ox 08/26/18 03:42 98.3 F 77 15 133/73 95 08/25/18 23:37 97.7 F 73 16 126/68 98 08/25/18 20:00 97.7 F 81 15 163/74 97 08/25/18 19:10 98.7 F 75 14 133/64 96 08/25/18 19:00 76 18 147/65 97 08/25/18 18:50 73 19 147/65 97 08/25/18 18:40 72 15 147/65 97 08/25/18 18:30 72 17 149/80 97 08/25/18 18:20 73 17 149/80 97 08/25/18 18:10 80 20 149/80 97 08/25/18 18:00 75 19 133/75 94 L 08/25/18 17:50 73 16 133/75 96 08/25/18 17:40 71 15 133/75 96 08/25/18 17:30 75 16 145/76 95 08/25/18 17:20 70 19 145/76 95 08/25/18 17:10 72 22 145/76 96 08/25/18 17:00 68 14 137/65 97 08/25/18 16:50 75 20 137/65 98 08/25/18 16:40 78 16 137/65 98 08/25/18 16:30 65 18 125/70 98 08/25/18 16:20 75 16 125/70 97 08/25/18 16:10 68 15 125/70 98 08/25/18 16:00 68 20 135/74 98 08/25/18 15:50 66 16 135/74 98 08/25/18 15:40 66 15 135/74 97 08/25/18 15:30 69 22 121/71 98 08/25/18 15:20 68 20 121/71 98 08/25/18 15:10 68 17 121/71 98 08/25/18 15:00 70 13 121/71 97 08/25/18 14:59 68 16 121/71 96 08/25/18 14:50 68 20 136/75 98 08/25/18 14:40 71 20 136/75 97 08/25/18 14:37 92 08/25/18 14:30 135/69 08/25/18 14:20 73 16 135/69 98 08/25/18 14:10 80 18 135/69 96 08/25/18 14:07 99 08/25/18 13:27 98.0 F 92 18 113/57 97 Intake and Output 08/25/18 08/26/18 08/26/18 22:59 06:59 14:59 Intake Total 200 Balance 200 Intake: Oral 200 Other: # Voids 2 Results 08/25/18 13:48 08/25/18 13:48 Cardiac Enzymes 08/25/18 08/25/18 08/25/18 Range/Units 13:48 13:48 19:40 AST 39 H (14-36) U/L Troponin I <0.012 <0.012 (0.000-0.034) ng/mL 08/26/18 Range/Units 01:40 AST (14-36) U/L Troponin I <0.012 (0.000-0.034) ng/mL Coagulation 08/25/18 Range/Units 14:05 PT 9.8 (9.0-12.0) sec APTT 21.9 L (22.0-30.0) sec CBC 08/25/18 Range/Units 13:48 WBC 5.4 (3.8-10.6) k/uL RBC 3.82 (3.80-5.40) m/uL Hgb 14.8 (11.4-16.0) gm/dL Hct 43.7 (34.0-46.0) % Plt Count 256 (150-450) k/uL Comprehensive Metabolic Panel 08/25/18 Range/Units 13:48 Sodium 140 (137-145) mmol/L Potassium 4.1 (3.5-5.1) mmol/L Chloride 100 (98-107) mmol/L Carbon Dioxide 28 (22-30) mmol/L BUN 18 H (7-17) mg/dL Creatinine 0.72 (0.52-1.04) mg/dL Glucose 94 (74-99) mg/dL Calcium 9.9 (8.4-10.2) mg/dL AST 39 H (14-36) U/L ALT 30 (9-52) U/L Alkaline Phosphatase 70 (38-126) U/L Total Protein 7.7 (6.3-8.2) g/dL Albumin 4.7 (3.5-5.0) g/dL Current Medications Generic Name Dose Route Start Last Admin Trade Name Freq PRN Reason Stop Dose Admin Hydrocodone Bitart/Acetaminophen 1 each 08/25/18 23:30 Selby 5-325 PO Q6HR PRN Pain Alprazolam 0.25 mg 08/25/18 23:30 Xanax PO TID PRN Anxiety Aspirin 81 mg 08/25/18 21:00 08/25/18 21:14 Aspirin PO 81 mg HS [facility] Administration Atorvastatin Calcium 20 mg 08/25/18 21:00 08/25/18 21:14 Lipitor PO 20 mg HS [facility] Administration Calcium Carbonate 1 each 08/26/18 09:00 Oscal 500+D PO DAILY [facility] Cholecalciferol 1,000 unit 08/26/18 09:00 Vitamin D3 (25 Mcg = 1000 Iu) PO DAILY [facility] Hydroxyurea 500 mg 08/26/18 09:00 Hydrea PO DAILY [facility] Magnesium Oxide 400 mg 08/26/18 09:00 Mag-Ox PO DAILY [facility] Multivitamins 1 each 08/26/18 09:00 Theragran PO DAILY [facility] Naloxone HCl 0.2 mg 08/25/18 16:55 Narcan IV Q2M PRN Opioid Reversal Triamterene/HCTZ 1 each 08/26/18 09:00 Maxzide-25 PO DAILY [facility] Intake and Output 08/25/18 08/26/18 08/26/18 22:59 06:59 14:59 Intake Total 200 Balance 200 Intake: Oral 200 Other: # Voids 2 08/25/18 13:48 08/25/18 13:48
[2018-08-26] MEDS: ASPIRIN 81 MG PO SCH (19:58)
[2018-08-26] MEDS: ATORVASTATIN 20 MG TAB PO SCH (19:58)
--- NOTE | 2018-08-26 23:54 | PN ---
PROGRESS NOTE DATE OF SERVICE: 08/26/2018 This 88-year-old woman was admitted with chest pain is being closely monitored by Cardiology. A 2D echo and ultrasound of the gallbladder not show acute abnormality. Cardiology is planning cardiac catheterization. No chest pain. No palpitations. No fever. EXAM: Alert and oriented times three. Pulse 84. Blood pressure 119/70, respiration 18, temperature 97.2, pulse ox 98% on room air. HEENT: Conjunctivae normal. NECK: No JVD. CARDIOVASCULAR: S1, S2 muffled. RESPIRATION: Breath sounds diminished in the bases. No rhonchi. No crackles. Abdomen is soft, nontender. Legs are no edema. No swelling. Central nervous system: No focal deficits. LAB STUDIES: WBC 5.0, hemoglobin 14.8, MCV 114.73. ASSESSMENT: 1. Chest pain possible unstable angina. 2. History of stent. 3. History of cardiac cath in March of last year. 4. Hypertension. 5. Hyperlipidemia. 6. History of myocardial infarction. 7. History of syncope. 8. History of degenerative joint disease. 9. History of tonsillectomy. 10.Macrocytosis. RECOMMENDATIONS AND DISCUSSION: Recommend to continue current management and symptomatic treatment. Otherwise, continue with monitor blood pressure closely. Otherwise cardiology. Follow closely. Cardiology, cardiac cath tomorrow. Further recommendations to follow. MMODL / IJN: [id number] /
[2018-08-27] MEDS: CHOLECALCIFEROL 1,000 UNIT TAB PO SCH (06:09)
[2018-08-27] MEDS: MULTIVITAMINS, THERA 1 EACH TAB PO SCH (06:09)
[2018-08-27] MEDS: CALCIUM CARB-VIT D 500MG-200UN 1 EACH TAB PO SCH (06:09)
[2018-08-27] MEDS: MAGNESIUM OXIDE 400 MG TAB PO SCH (06:09)
[2018-08-27] MEDS: TRIAMTERENE-HCTZ 37.5-25MG 1 EACH TAB PO SCH (06:11)
[2018-08-27] MEDS: HYDROXYUREA 500 MG CAP PO SCH (06:11)
[2018-08-27] MEDS ORDERED: ASPIRIN 325 MG TAB PO ONE (07:00)
[2018-08-27] MEDS ORDERED: LIDOCAINE 1% INJ 10MG/ML (20 ML MDV) ONE (13:14)
[2018-08-27] MEDS ORDERED: MIDAZOLAM (PF) 2 MG/2 ML VIAL IVP ONE (13:20)
[2018-08-27] MEDS ORDERED: LIDOCAINE 1% INJ 10MG/ML (20 ML MDV) SQ ONE (13:22)
[2018-08-27] MEDS ORDERED: IOPAMIDOL-370 125ML BTL INJ ONE (13:32)
[2018-08-27] MEDS ORDERED: IV FLUID CONTINUATION 1,000 ML IV ONE (13:32)
[2018-08-27] MEDS ORDERED: RX INFO: IV CONTRAST WAS GIVEN 1 EACH MISC MISCELLANE PRN (13:35)
[2018-08-27] MEDS ORDERED: SODIUM CHLORIDE 0.9% 1,000 ML IV SCH (13:45)
[2018-08-27] MEDS: ATORVASTATIN 20 MG TAB PO SCH (20:10)
[2018-08-27] MEDS: ASPIRIN 81 MG PO SCH (20:11)
--- NOTE | 2018-08-27 21:12 | CC ---
CARDIAC CATHETERIZATION REPORT DATE OF SERVICE: 08/27/2018 PERFORMING PHYSICIAN: Ilya Kelley MD, director consumer affairs. PROCEDURES PERFORMED: 1. Selective right and left coronary angiogram. 2. Left heart catheterization. INDICATION: This is an 88-year-old female patient who sees Dr. Hicks in the office as an outpatient with known history of coronary artery disease and prior stenting of the ramus intermedius coronary artery. He presented to the hospital and was admitted to the observation unit with chest discomfort and left arm discomfort concerning for angina. She was seen by Dr. Magallon, who recommended proceeding with coronary angiogram. APPROACH: Right common femoral artery. COMPLICATIONS: None. LEVEL OF SEDATION: Moderate; sedation length of 13 minutes. PROCEDURE DESCRIPTION: After obtaining informed consent, the patient was brought to the medical laboratory scientist. The right common femoral artery was cannulated using micropuncture technique. Then I placed a 6- Czech sheath. After that, I did selective right and left coronary angiogram using JR4 and JL4 catheters. Left heart catheterization was performed using the JR4 catheter, which crossed the aortic valve. Then I pulled back across the aortic valve. After that the procedure was completed without any complication. SELECTIVE CORONARY ANGIOGRAM: 1. The right coronary artery is a large-caliber vessel. It is a dominant vessel. The proximal right appeared to have mild disease only. The mid right appeared to have mild disease only as well. It distally bifurcates into PDA and PLV branches. The PDA branch has mild disease only and the PLV branch has an intermediate lesion in the range of 50%. 2. The left main appeared to have mild disease only. It bifurcates into left circumflex and left anterior descending artery. 3. The left circumflex is a large-caliber vessel. It is a nondominant vessel. The proximal portion appeared to be normal and gives rise to the first OM branch, which works as a ramus intermedius which is stented with mild in-stent restenosis. The mid circumflex after that gives rise to a second OM branch, which seems to be normal, and the circumflex continues after that as a medium-caliber vessel in the AV groove. 4. The LAD appeared to have mild disease only. In the proximal portion it gives rise to a medium-sized diagonal branch which seems to be normal. HEMODYNAMICS: The left ventricular end-diastolic pressure was 4 mmHg without significant gradient across the aortic valve. CONCLUSION: 1. Mild in-stent restenosis involving the ramus intermedius coronary artery. 2. Intermediate disease involving the right coronary artery. POST-PROCEDURE MANAGEMENT: Given the above anatomy, I recommend maximized medical treatment and followup with the patient. MMTITI / DAVIANN: [id number] /
--- NOTE | 2018-08-27 21:39 | PN ---
PROGRESS NOTE DATE OF SERVICE: 08/27/2018. This 88-year-old woman was admitted with chest pain and arm pain, underwent a cardiac catheterization. The official report is pending at this time. Reported as clean catheterization. Ultrasound of the gallbladder did not show acute abnormality. A 2D echo with Doppler was also done which showed ejection fraction about 55-60 percent. No chest pain. No palpitations. No fever. EXAM: Alert and oriented x3. Pulse is 89, blood pressure 130/60, respiration 18, temperature 97.8, pulse ox 94% on room air. HEENT: Conjunctivae normal. NECK: No jugular venous distention. CARDIOVASCULAR: S1, S2 muffled. RESPIRATORY: Breath sounds diminished in the bases. No rhonchi. No crackles. Abdomen is soft, nontender. Legs are no edema. No swelling. LABS: WBC 5.4, MCV 114, otherwise other labs are noted. ASSESSMENT: 1. Chest pain for possible unstable angina. 2. History of cardiac stents. 3. History of cardiac cath in March last year. 4. Hypertension. 5. Hyperlipidemia. 6. Dizziness. 7. History of myocardial infarction. 8. History of syncope. 9. History of degenerative joint disease. 10.History of tonsillectomy. 11.History of microcytosis. RECOMMENDATIONS AND DISCUSSION: Recommend to continue current medications, management and symptomatic treatment. Otherwise, I would also recommend follow the patient closely and further outpatient followup and evaluation regarding the patient's multiple symptoms include dizziness and syncope, previous syncope. Further recommendations to follow. Recommend close follow up with Dr. Reid in the outpatient setting. Discussed with the family at length. MMODL / IJN: [id number] /
[2018-08-28 07:07] VITALS: RESP 16
[2018-08-28] MEDS: TRIAMTERENE-HCTZ 37.5-25MG 1 EACH TAB PO SCH (08:34)
[2018-08-28] MEDS: MULTIVITAMINS, THERA 1 EACH TAB PO SCH (08:34)
[2018-08-28] MEDS: MAGNESIUM OXIDE 400 MG TAB PO SCH (08:34)
[2018-08-28] MEDS: CHOLECALCIFEROL 1,000 UNIT TAB PO SCH (08:34)
[2018-08-28] MEDS: CALCIUM CARB-VIT D 500MG-200UN 1 EACH TAB PO SCH (08:34)
[2018-08-28] MEDS: HYDROXYUREA 500 MG CAP PO SCH (08:35)
--- NOTE | 2018-08-28 09:54 | P.PN ---
Subjective This is a pleasant 88-year-old female past medical history significant for coronary artery disease, dyslipidemia and hypertension. She follows in the office with Dr. Allan. We have been asked to see her in consultation secondary to chest discomfort. She states she noticed a pain in the left arm 1- week ago described as a pulsing sensation. She took 1 nitro and the pain subsided. Then throughout the week the week she has experienced intermittent nausea and feeling light headed with no specific aggravating cause. Sunday she again felt nauseated however noticed increased fatigued and overall weakness. She woke up Sunday morning feeling overall ok. However after eating breakfast started having arm discomfort again. There is no radiation of the discomfort to the chest, back, neck or jaw. She denies associated shortness of breath, palpitations, vomiting or diaphoresis. She has had similar episodes in March 2017 prompting her to undergo coronary angiography. This revealed mild to moderate disease of the proximal RCA, PLV branch of the RCA with an intermediate lesion of approximately 50%, mild disease at the ostium of the left main, circumflex with mild disease only. First OM with mild in-stent restenosis, LAD angiographically normal. 08/28/2018 Pt underwent cardiac catheterization yesterday with Dr. Kelley that revealed mild in-stent restenosis involving the ramus intermedius and mild intermediate disease of the RCA. Unchanged from previous study. Maximal medical therapy recommended. She is seen and examined resting comfortably in bed in no acute distress. She has been up ambulating without difficulty or discomfort to the right groin. She denies any further symptoms of chest or arm discomfort. B reathing is stable. Blood pressure 116/70 heart rate 88 afebrile maintaining oxygen saturation on room air. Currently maintained on aspirin 81 mg daily, atorvastatin 20 mg daily, Maxzide 37.5/25 mg daily. GENERAL: This is a 88-year-old female in no apparent distress at the time of my examination. HEENT: Head is atraumatic, normocephalic. Pupils are equal, round. Sclerae anicteric. Conjunctivae are clear. Mucous membranes of the mouth are moist. Neck is supple. There is no jugular venous distention. No carotid bruit is heard. LUNGS: Clear to auscultation no wheezes, rales or rhonchi. No chest wall tenderness is noted on palpation or with deep breathing. HEART: Regular rate and rhythm without murmurs, rubs or gallops. S1 and S2 heard. EXTREMITIES: No evidence of peripheral edema and no calf tenderness noted. Right groin soft, non-tender, no hematoma, no swelling, no ecchymosis. ASSESSMENT Left arm discomfort suggestive of unstable angina in a patient with known coronary artery disease History of coronary artery disease status post stent placement Hypertension Dyslipidemia PLAN Stable for discharge. Continue current medical regimen. Follow up with Dr. Hicks at previously scheduled appointment September 06. Nurse Practitioner note has been reviewed, I agree with a documented findings and plan of care. Patient was seen and examined. Objective - Vital Signs Vital signs: Vital Signs Temp 97.6 F 08/28/18 07:00 Pulse 88 08/28/18 07:00 Resp 16 08/28/18 07:00 BP 116/70 08/28/18 07:00 Pulse Ox 98 08/28/18 07:00 Intake & Output 08/27/18 08/28/18 08/28/18 18:59 06:59 18:59 Intake Total 530 240 Balance 530 240 Intake: IV 50 Oral 480 240 Other: Voiding Method Toilet Toilet Toilet # Voids 2 1 - Labs CBC & Chem 7: 08/25/18 13:48 08/25/18 13:48
[2018-08-28 11:22] VITALS: BP 102/65; PULSE 66; TEMP 97.3
--- NOTE | 2018-08-29 09:22 | DS ---
DISCHARGE SUMMARY DATE OF SERVICE: 08/28/2018. FINAL DIAGNOSES: 1. Chest pain, possible unstable angina. 2. Status post cardiac catheterization and patent stents. 3. History of coronary artery disease/ stent. 4. History of cardiac cath in March last year. 5. Hypertension. 6. Hyperlipidemia. 7. Dizziness. 8. History of myocardial infarction. 9. History of syncope. 10.History of degenerative joint disease. 11.History of tonsillectomy. 12.History of microcytosis. DISCHARGE DISPOSITION: The patient will be discharged in stable condition with guarded prognosis. HISTORY OF PRESENT ILLNESS: This 88-year-old woman with a past medical history of multiple medical problems was admitted with chest and arm pain and multiple other medical issues. Patient treated symptomatically. Cardiology performed a cardiac catheterization which showed no obstructive lesions at this time. Treated symptomatically. Patient improved significantly. Recommend close follow up with primary physician in the outpatient setting. On exam, vital signs are stable. Cardio system: S1, S2. Abdomen soft. Nervous System: No focal deficits. Otherwise MCV was found to be 114.3. Recommend close outpatient followup. The lipid panels are negative. Troponins are negative. DISCHARGE ADVICE AND MEDICATIONS: 1. Diet is cardiac diet. 2. Activity limited until followup. 3. Follow up with Dr. Reid in 2-3 days. 4. Follow up with Dr. Hicks as cardiology as recommended. DISCHARGE MEDICATIONS: 1. Aspirin 81 mg q.h.s. 2. Calcium carbonate 1 p.o. daily. 3. Hydrea 500 mg p.o. daily. 4. Lipitor 20 mg q.h.s. 5. Magnesium oxide 500 mg p.o. daily. 6. Maxzide 37.5 mg 1 p.o. daily. 7. Multivitamin 1 p.o. daily. 8. Premarin 1 application Q 14 days. 9. Vitamin D3 1000 daily. 10.Nitrostat 0.4 sublingual p.r.n. MMODL / IJN: [id number] /
== END 2018-08-28 12:50 | disposition home or self-care (01) | DRG 287 ==
LOC: EC 13:15 → 1SOBS 16:55 → OBSVTOIN 08-27 07:20
PROVIDERS: ADMIT Internal Medicine; ATTEND Internal Medicine
PROC: 4A023N7 Measurement of Cardiac Sampling and Pressure, Left Heart, Percutaneous Approach (ICD-10-PCS; principal; 2018-08-27 13:05)
PROC: B2161ZZ Fluoroscopy of Right and Left Heart using Low Osmolar Contrast (ICD-10-PCS; principal; 2018-08-27 13:05)
DX: I25.110 Atherosclerotic heart disease of native coronary artery with unstable angina pectoris (principal); T82.855A Stenosis of coronary artery stent, initial encounter; I25.2 Old myocardial infarction; I10 Essential (primary) hypertension; E78.5 Hyperlipidemia, unspecified; R55 Syncope and collapse; M19.90 Unspecified osteoarthritis, unspecified site; M79.602 Pain in left arm; R42 Dizziness and giddiness; R11.0 Nausea; D75.89 Other specified diseases of blood and blood-forming organs; Y83.1 Surgical operation with implant of artificial internal device as the cause of abnormal reaction of the patient, or of later complication, without mention of misadventure at the time of the procedure; R71.8 Other abnormality of red blood cells; R53.1 Weakness; Z96.1 Presence of intraocular lens; Z79.82 Long term (current) use of aspirin; Z79.899 Other long term (current) drug therapy; Z82.49 Family history of ischemic heart disease and other diseases of the circulatory system; Z90.710 Acquired absence of both cervix and uterus; Z98.41 Cataract extraction status, right eye; Z98.42 Cataract extraction status, left eye; Z68.22 Body mass index [BMI] 22.0-22.9, adult; Z91.048 Other nonmedicinal substance allergy status; Z90.89 Acquired absence of other organs; Z90.49 Acquired absence of other specified parts of digestive tract; Z98.890 Other specified postprocedural states
CPT/HCPCS: 36415; 71046; 76705; 80053; 80061; 83735; 84484; 85025; 85610; 85730; 93005; 93306; 93458; 96374; 99285

== ENCOUNTER → 2019-04-11 | Outpatient (CLI) | payer MEDICARE ==
--- NOTE | 2019-04-11 17:08 | CT ---
EXAMINATION TYPE: CT abdomen pelvis w con DATE OF EXAM: 04/11/2019 COMPARISON: None INDICATION: left sided abdominal pain DLP: 752 mGycm, Automated exposure control for dose reduction was used. CONTRAST: 100 mL of Isovue 300. Study performed with Oral Contrast TECHNIQUE: Axial images were obtained from above the diaphragm to the pubic rami in the axial plane a t 5 mm thick sections. Reconstructed images are reviewed on the computer in the coronal plane. FINDINGS: Limited CT sections are obtained the lung bases. The lung bases are clear. CT ABDOMEN: Liver: Normal Spleen: Normal Pancreas: Normal Adrenal glands: The adrenal glands are normal. Gallbladder: Normal Kidneys: No masses are evident. No hydronephrosis is present. No cysts are present. Delayed images were obtained through the kidneys, which remain unremarkable. Aorta: Vascular calcification is within the aorta. Inferior vena cava: Normal. CT PELVIS: Loops of bowel within the abdomen and pelvis are normal. There are loops of bowel which are incom pletely distended or lack oral contrast limiting their evaluation. Appendix: Not visualized. No suspicious inflammatory changes are evident. Urinary bladder: Normal. Genitourinary structures: Uterus and ovaries are not identified. Osseous structures: No suspicious lytic or sclerotic lesions. Facet degenerative changes are within t he lumbar spine. Sacroiliac joint degenerative changes are noted. There may be some fusion of the pub ic symphysis. IMPRESSIONS: 1. No suspicious acute abnormality to account for left abdomen pain
== END | disposition home or self-care (01) ==
LOC: RADCTMAIN 14:23
PROVIDERS: ATTEND Family Medicine
DX: R10.32 Left lower quadrant pain (principal)
CPT/HCPCS: 82565; 84520; 74177; 36415; Q9967